=== PATIENT | male | born 1945 | race Caucasian/White ===

== ENCOUNTER → 2023-04-10 09:01 | Outpatient (REF) | payer OTHER, SELFPAY ==
[2023-04-10 09:38] LABS: % Basophils 0.6 % (0-2); % Eosinophils 1.8 % (0-6); % Immature Granulocytes 0.5 % (0-0.5); % Lymphocytes 17.6 % (20.5-51.1); % Monocytes 8.6 % (1.7-9.3); % Neutrophils 70.9 % (42.2-75.2); Absolute Eosinophils 0.1 10^3/uL (0-0.7); Absolute Lymphocytes 1.2 10^3/uL (1.2-3.4); Absolute Monocytes 0.6 10^3/uL (0.1-0.6); Absolute Neutrophils 4.7 10^3/uL (1.4-6.5); Hematocrit 42.2 % (39.0-52.0); Hemoglobin 14.5 g/dL (13.0-18.0); Mean Corp Hgb Conc. 34.4 g/dL (33.0-37.0); Mean Corpuscular Volume 93.2 fL (80.0-94.0); Mean Platelet Volume 9.3 fL (7.4-10.4); Nucleated Red Blood Cells % 0 % (-); Platelet Count 238 10^3/uL (130-400); Red Blood Cell Count 4.53 10^6/uL (4.70-6.10); White Blood Cell Count 6.6 10^3/uL (4.8-10.8)
[2023-04-10 10:55] LABS: ALT (SGPT) 23 U/L (0-50); AST (SGOT) 36 U/L (17-59); Albumin 3.9 g/dl (3.5-5.0); Alkaline Phosphatase 74 U/L (38-126); Blood Urea Nitrogen 17 mg/dl (9-20); Calcium 8.9 mg/dl (8.4-10.2); Carbon Dioxide 29 mmol/L (22-30); Chloride 105 mmol/L (98-107); Glucose 108 mg/dl (70-99); HDL Cholesterol 72 mg/dl; LDL Cholesterol, Calculated 70 mg/dl; PSA, Total - Screen 6.84 ng/ml (0.0-4.0); Potassium 4.3 mmol/L (3.5-5.1); Sodium 138 mmol/L (135-145); Total Bilirubin 0.9 mg/dl (0.2-1.3); Total Cholesterol 153 mg/dl (50-199); Total Protein 6.6 g/dl (6.3-8.2); Triglyceride 55 mg/dl (10-149); Very Low Density Lipoprotein 11 mg/dl (0-30); eGFR > 60.00
[2023-04-10 11:36] LABS: Glycohemoglobin (HgbA1c) 5.7 % (4.0-5.6)
== END ==
LOC: REG 09:01
PROVIDERS: ATTENDING PHYSICIAN Student in an Organized Health Care Education/Training Program
DX: Z00.00 Encounter for general adult medical examination without abnormal findings (principal); R73.01 Impaired fasting glucose; E78.00 Pure hypercholesterolemia, unspecified; M04.1 Periodic fever syndromes; Z12.5 Encounter for screening for malignant neoplasm of prostate
CPT/HCPCS: 36415; 80053; 80061; 83036; 85025; G0103

== ENCOUNTER → 2023-04-26 10:24 | Outpatient (REF) | payer OTHER, SELFPAY | LOC: RCS 10:24 | PROVIDERS: ATTENDING PHYSICIAN Student in an Organized Health Care Education/Training Program | DX: R93.1 Abnormal findings on diagnostic imaging of heart and coronary circulation (principal) | CPT/HCPCS: 93017 ==

== ENCOUNTER → 2023-05-06 08:49 | Outpatient (REF) | payer OTHER, SELFPAY | LOC: HWRCS 08:49 | PROVIDERS: ATTENDING PHYSICIAN Student in an Organized Health Care Education/Training Program | DX: R93.1 Abnormal findings on diagnostic imaging of heart and coronary circulation (principal) | CPT/HCPCS: 93306 ==

== ENCOUNTER → 2023-05-10 08:22 | Outpatient (REF) | payer OTHER, SELFPAY | LOC: RAD 08:22 | PROVIDERS: ATTENDING PHYSICIAN Student in an Organized Health Care Education/Training Program | DX: R97.20 Elevated prostate specific antigen [PSA] (principal) | CPT/HCPCS: 76872 ==

== ENCOUNTER → 2023-07-31 11:37 | Outpatient (REF) | payer OTHER, SELFPAY | LOC: PET 11:37 | PROVIDERS: ATTENDING PHYSICIAN Specialist | DX: C61 Malignant neoplasm of prostate (principal) | CPT/HCPCS: 78815 ==

== ENCOUNTER → 2023-08-09 07:09 | Outpatient (REF) | payer OTHER, SELFPAY ==
[2023-08-09 08:38] LABS: Blood Urea Nitrogen 26 mg/dl (9-20); Carbon Dioxide 30 mmol/L (22-30); Chloride 103 mmol/L (98-107); Glucose 104 mg/dl (70-99); Potassium 4.2 mmol/L (3.5-5.1); Sodium 141 mmol/L (135-145); eGFR > 60.00
== END ==
LOC: REG 07:09
PROVIDERS: ATTENDING PHYSICIAN Surgery Vascular Surgery; FAMILY PHYSICIAN Student in an Organized Health Care Education/Training Program
DX: I71.40 Abdominal aortic aneurysm, without rupture, unspecified (principal); R97.20 Elevated prostate specific antigen [PSA]
CPT/HCPCS: 36415; 80048; G0103

== ENCOUNTER → 2023-08-14 08:43 | Outpatient (REF) | payer OTHER, SELFPAY | LOC: HWRAD 08:43 | PROVIDERS: ATTENDING PHYSICIAN Surgery Vascular Surgery; FAMILY PHYSICIAN Student in an Organized Health Care Education/Training Program | DX: I71.40 Abdominal aortic aneurysm, without rupture, unspecified (principal) | CPT/HCPCS: 74174; Q9967 ==

== ENCOUNTER 2023-09-02 06:12 | Inpatient (IN) | payer OTHER, SELFPAY ==
[2023-08-28 10:48] LABS: % Basophils 0.4 % (0-2); % Eosinophils 1.2 % (0-6); % Immature Granulocytes 0.4 % (0-0.5); % Lymphocytes 14.2 % (20.5-51.1); % Monocytes 6.7 % (1.7-9.3); % Neutrophils 77.1 % (42.2-75.2); Absolute Eosinophils 0.1 10^3/uL (0-0.7); Absolute Monocytes 0.5 10^3/uL (0.1-0.6); Absolute Neutrophils 5.3 10^3/uL (1.4-6.5); Hematocrit 42.5 % (39.0-52.0); Hemoglobin 14.5 g/dL (13.0-18.0); Mean Corp Hgb Conc. 34.1 g/dL (33.0-37.0); Mean Corpuscular Hgb 31.2 pg (27.0-31.0); Mean Corpuscular Volume 91.4 fL (80.0-94.0); Mean Platelet Volume 10.4 fL (7.4-10.4); Nucleated Red Blood Cells % 0 % (-); Platelet Count 184 10^3/uL (130-400); Red Blood Cell Count 4.65 10^6/uL (4.70-6.10); Red Cell Dist. Width 13.4 % (11.5-14.5); White Blood Cell Count 6.9 10^3/uL (4.8-10.8)
[2023-08-28 10:57] LABS: INR 1.07; PT 13.9 Sec (11.4-14.6)
[2023-08-28 10:58] LABS: APTT 25.5 Sec (23.4-35.0)
[2023-08-28 12:02] LABS: Blood Urea Nitrogen 16 mg/dl (9-20); Calcium 9.3 mg/dl (8.4-10.2); Carbon Dioxide 30 mmol/L (22-30); Chloride 103 mmol/L (98-107); Glucose 104 mg/dl (70-99); Potassium 4.2 mmol/L (3.5-5.1); Sodium 139 mmol/L (135-145); eGFR > 60.00
[2023-08-28 12:30] VITALS: BMI 21.7
[2023-09-02] VITALS (12 sets, daily range): BP systolic 116–141; BP diastolic 71–96; BMI 20.9
[2023-09-02] MEDS: PERIDEX 0.12% ORAL RINSE 15 ML PO (06:45)
[2023-09-02] MEDS: BACTROBAN NASAL 1 GRAM NASAL (06:47)
[2023-09-02] MEDS: NSS 181 ML IV (06:59)
[2023-09-02 07:08] LABS: Glucose - Point of Care 95 mg/dl (70-99)
--- NOTE | 2023-09-02 07:19 | W.SUR.PREOP ---
Pre-Operative Surgical Note
-
I have examined this patient prior to the performance of the scheduled procedure.
The patient's condition is unchanged from the time of the current History and
Physical and the patient is able to undergo the scheduled procedure.
[2023-09-02 08:53] LABS: ACT-LR - POC 221 Seconds (116-155)
[2023-09-02 09:31] LABS: ACT-LR - POC 237 Seconds (116-155)
--- NOTE | 2023-09-02 10:24 | OR.RPT ---
Operative Report
Operative Report
Date of Operation: 09/02/2023
Pre Op Diagnosis: Abdominal aortic aneurysm
Post Op Diagnosis: Abdominal aortic aneurysm
Procedure:
1.) Percutaneous endovascular repair of infrarenal abdominal aortic aneurysm:
����������� Terumo Treo 28 mm x 100 mm
����������� Terumo Treo 17 mm x 120 mm �(LEFT iliac limb)
����������� Terumo Treo 17 mm x 120 mm (RIGHT iliac limb)
2.) Introduce wire/catheter abdominal aorta from femoral arterial access (bilateral)
3.) Ultrasound-guided percutaneous femoral access (bilateral)
4.) LEFT femoral artery cutdown for primary repair of common femoral artery access site at the conclusion of the case
5.) Pro-glide closure to the right common femoral artery access
Surgeon: Blake Horner III, MD
Document Management Technician: Camilo Nettles MD PGY-1
Anesthesia: General
Complications: None
Estimated blood loss: 100 cc
Fluoroscopy:
25.9 minutes
311 mGy
DAP 108.27
History and Indications for Procedure: 78-year-old male with large abdominal aortic aneurysm.
Procedure in Detail: Juan Carlos Mcduffie was correctly identified and placed supine on the operating table. After adequate induction of anesthesia the abdomen, pelvis and bilateral groins were positioned, prepped and draped in the usual sterile
fashion. Preoperative antibiotics were administered. A timeout procedure was performed with the nursing and anesthesia staff confirming the patient�s identity as well as the nature and laterality of the procedure.
Under ultrasound guidance, bilateral femoral artery sheath access was obtained. The arteries were patent. Ultrasound images of the femoral arteries were saved to the medical record. A pre-close technique was performed bilaterally with 2 offset
Proglide closure devices. The sutures were secured and tucked under surgical towels for use at the end of the case. The patient was systemically heparinized.
From the right femoral access a KMP catheter and Bentson wire were advanced to the proximal descending thoracic aorta. The wire was exchanged out through the KMP catheter for a Lunderquist wire.� There was some persistent bleeding from around the
percutaneous sheath access in the left femoral artery therefore I upsized to a 16 [place] dry seal sheath on the left over a Lunderquist wire. �Hemostasis was then achieved at the access site. �A marker pigtail catheter was then placed for
angiographic purposes through the left femoral sheath.
The aortic main body device was then properly oriented outside the body under fluoro. The Terumo Treo 28 mm x 100 mm aortic main body device was then loaded onto the right Lunderquist wire and advanced into the abdominal aorta. With the device in
the approximate position an aortogram was performed and identified the origins of the renal arteries bilaterally.� Under roadmap guidance the main body was partially unsheathed. Another aortogram was then performed under magnified view and in the
appropriate cranio-caudal C-arm orientation to account for parallax. The main body was positioned appropriately below the renal arteries and the remaining main body deployment to the contralateral gate was performed. Satisfied with the proximal main
body positioning the suprarenal stent was then deployed.
The C-arm was re-oriented to view the contralateral gate. Using a KMP catheter and a Glidewire, the contralateral gate was cannulated. The wire and catheter were advanced into the main body and then exchanged out for a pigtail catheter. The pigtail
was spun easily and confirmed proper positioning in the main body lumen. The pigtail catheter was then advanced into the proximal descending thoracic aorta and then the wire exchanged out for a Lunderquist. A retrograde arteriogram was then
performed with the marker pigtail catheter on the stiff wire. The iliac bifurcation was visualized and lengths were measured for the contralateral iliac limb. A 17 mm x 120 mm Terumo iliac limb was inserted through the 16 [place] dry seal sheath on
the left under fluoro. Proper overlap was obtained. The limb was deployed under roadmap guidance without difficulty.
The remainder of the main body/ipsilateral limb deployment was performed. The delivery system was carefully removed over the wire under fluoro, leaving the sheath in place.
A marker pigtail catheter was placed on the right Lunderquist wire. The right femoral sheath was pulled back and a retrograde arteriogram was then performed with the marker pigtail catheter on the stiff wire. The right iliac bifurcation was
visualized and lengths were measured for the ipsilateral iliac limb extension. A 17 mm x 120 mm Terumo iliac limb was inserted on the right under fluoro. Proper overlap was obtained. The limb was deployed under roadmap guidance without difficulty.
A Coda balloon was then inserted from each femoral access, one side at a time. The proximal main body seal zone, all areas of overlap, both iliac limbs and both distal iliac seal zones were profiled with the balloon. The balloon was readvanced into
the main body and the Lunderquist wire removed. A pigtail catheter was inserted and advanced to the proximal main body.
A completion aortogram demonstrated an excellent technical result. The aneurysm was excluded. No endoleaks were seen. There was brisk flow through the stent and iliac limbs. The renal arteries were widely patent bilaterally. The iliac bifurcations
were preserved bilaterally.
Satisfied with this result we then proceeded with closure.� We attempted to secure the Pro-glide knots in the left femoral access however there was persistent bleeding from the access site.� I positioned and deployed a third Pro-glide at 12 o'clock
but this did not result in meaningful improvement in hemostasis and I did not think this could be controlled adequately with manual pressure..� Therefore while applying manual pressure proximally and distally I quickly cut down on the left common
femoral artery.� I followed the Pro-glide sutures down to the arterial access using sharp dissection and electrocautery along with self-retaining retractors.� The left common femoral artery was identified and exposed.� There was an area of pulsatile
bleeding from the common femoral artery lateral to the Pro-glide suture knots.� This was controlled with interrupted 5-0 Prolene sutures.� Hemostasis was achieved.� The wound was then packed with dry gauze while we focused on the right femoral
artery access.
The Proglide sutures on the right were secured after removing the sheath and wire. Protamine was administered at this point. Additional pressure was applied to the right femoral artery access site for 10 minutes. Hemostasis was achieved. �Skin glue
was applied.
I then re-examined the left femoral artery.� The arterial suture line was intact and there was complete hemostasis.� The wound was irrigated with saline solution.� Thrombin soaked Gelfoam was applied to the artery. Hemostasis was achieved in the
wound bed.� The wound was closed in layers. Sterile dressings were applied.
The patient tolerated the procedure well and was taken to the PACU in stable condition. He had palpable pedal pulses bilaterally at the conclusion of the case.
Attestation: I was present and responsible for the entire procedure
SIGNED:
Blake Horner III, MD
[facility] Surgery
[phone] (cell)
--- NOTE | 2023-09-02 10:33 | W.IMMPOSTOP ---
Surgical Immed Post Op Note
-
Primary Surgeon: Blake Horner III, MD
Assisting Surgeon: Caimlo Nettles MD
Pre-op Diagnosis: Infra-renal AAA
Post-op Diagnosis: Infra-renal AAA
Procedure Performed: Endovascular Aneurysm Repair
Anesthesia Type: General
Specimen / Cultures: NA
Estimated Blood Loss: 100cc
Complications: NA
Operative Findings:
Bilateral groin access established and serial dilation to 5Fr sheaths. 2 perc close devices placed in each access site. [id number] main body device advanced up right groin. Overlapping 10s551 limb devices advanced and deployed without issues. All
devices were balloon-expanded. Deployment devices removed while deploying perc close devices. After deployment of perc-close devices, left groin required small cut-down to control additional bleeding. Two 5-0 prolenes were placed and tied, with
hemostasis confirmed. Gel-foam and thrombin placed for additional hemostatic control. Left groin closed with running 3-0 vicryls, overlying 4-0 monocryl, and skin glue. Pulses palpable bilaterally after closure.
[2023-09-02 10:57] LABS: Hematocrit 36.9 % (39.0-52.0); Hemoglobin 12.5 g/dL (13.0-18.0); Mean Corp Hgb Conc. 33.9 g/dL (33.0-37.0); Mean Corpuscular Hgb 30.9 pg (27.0-31.0); Mean Corpuscular Volume 91.3 fL (80.0-94.0); Platelet Count 120 10^3/uL (130-400); Red Blood Cell Count 4.04 10^6/uL (4.70-6.10); Red Cell Dist. Width 13.1 % (11.5-14.5); White Blood Cell Count 12.1 10^3/uL (4.8-10.8)
[2023-09-02 11:05] LABS: APTT 28.1 Sec (23.4-35.0); INR 1.24; PT 15.4 Sec (11.4-14.6)
[2023-09-02 11:15] LABS: Blood Urea Nitrogen 13 mg/dl (9-20); Calcium 6.8 mg/dl (8.4-10.2); Carbon Dioxide 20 mmol/L (22-30); Chloride 114 mmol/L (98-107); Estimated Creatinine Clearance 89 ml/min; Glucose 130 mg/dl (70-99); Potassium 3.4 mmol/L (3.5-5.1); Sodium 139 mmol/L (135-145); eGFR > 60.00
[2023-09-02] MEDS: NSS 1000 IV (11:23)
[2023-09-02] MEDS: KCL 270 MEQ IV (12:10)
--- NOTE | 2023-09-02 12:39 | CON.INTV ---
Consultation
Consultation Request
Date/Time Consultation Requested: 09/01
Date/Time Consultation Performed: 09/01
Reason for Consultation: Critical care
Medical History
-
History of Present Illness:
78-year-old male with history of prostate cancer diagnosed 1 month prior to admission, with known abdominal aortic aneurysm infrarenal 7.0 cm who is status post, otherwise healthy. Patient underwent repair of his abdominal aortic aneurysm, EVAR.
Admitted to ICU for further management postoperatively. Presently he is without complaints. He has some mild left groin discomfort during exam but otherwise no shortness of breath, nausea, abdominal pain, leg pain. and friend at bedside to
corroborate history.
Of note, preadmission, patient was running regularly, 16 miles without any difficulty. Has plans to run the [employer].
.
PMH: Hypertension, hyperlipidemia history of metastatic prostate cancer, tubular colon polyp, familial Mediterranean fever. History of appendectomy 1954, cholecystectomy 1992, right inguinal hernia repair 2013
Past Medical History
Past Medical History: None (See above)
Past Surgical History: None (See above)
Social History
Tobacco: Former Smoker ([id number], quit 1983)
Alcohol: Occasional
Drug: None
Personal:
Living: With Family
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
Family History
Family History: Reviewed & Not Pertinent (Parents , 2 sisters healthy. No children. Both parents in the ninth decade)
Allergies / Home Medications
Allergies
Allergy/AdvReac Type Severity Reaction Status Date / Time
No Known Allergies Allergy Verified 08/22/23 12:17
Home Medications
�Medication �Instructions �Recorded �Confirmed �Last Taken �Type
aspirin 81 mg tablet,delayed 81 mg PO HS 08/22/23 09/02/23 08/31/23 23:00 History
release
atorvastatin 20 mg tablet (Lipitor) 20 mg PO HS 08/22/23 09/02/23 08/31/23 23:00 History
relugolix 120 mg tablet (Orgovyx) 120 mg PO DAILY 08/22/23 09/02/23 09/01/23 10:00 History
tamsulosin 0.4 mg capsule (Flomax) 0.4 mg PO DAILY 08/22/23 09/02/23 09/01/23 08:00 History
Review of Systems
-
All other systems: Negative unless noted
Vitals / Labs / Diagnostic Testing
Vital Signs
Temp Pulse Resp BP Pulse Ox
97.6 F 69 13 123/72 99
09/02/23 12:32 09/02/23 12:30 09/02/23 12:30 09/02/23 12:03 09/02/23 12:35
Lab Data
09/02/23 10:44
09/02/23 10:44
Laboratory Results
09/02/23
10:44
PT 15.4 H
INR 1.24
APTT 28.1
Diagnostic Testing:
Physical Exam
-
HEENT: Normocephalic, Anicteric and Other (Right upper extremity A-line. Left and right groin intact, pulse intact, no hematoma)
Cardiovascular: S1/S2, Regular Rhythm, Murmur (n), Rub (n), Peripheral Edema (n) and Other (Extremities warm, pulses intact)
Respiratory: Wheeze (n), Rales (n), Rhonchi (n) and Non-Labored Respirations
GI: Soft, Non Distended and Non Tender
Neurology: Awake, Alert and No Motor Deficits (Moving all extremities)
Skin: Good Color
General: Comfortable (Conversant, lying flat in good spirits)
Assessment
-
78-year-old male with history of presumed coronary disease based on abnormal coronary calcium score, prostate cancer, now status post endovascular aneurysm repair of infrarenal AAA 7 cm. Estimated blood loss 100 cc. We are asked to help from
critical care standpoint 09/02/2023
s/p endovascular aneurysm repair, infrarenal AAA 7.2 cm
09/02/2023
Left femoral artery cutdown for primary repair of common femoral artery access site hypokalemia,
Hypocalcemia mild to moderate left hydronephrosis, Per imaging
Conditions present prior to admission
Presumed coronary disease, abnormal calcium score
Treated with high-dose statin, aspirin
Recently diagnosed prostate cancer
Osseous metastases per PET scan
Suspected epidural metastases mid thoracic spine
Distant tobacco history, quit 1983
[id number]
Plan/recommendations
At this time, patient remains critically ill but stable. He is without complaints
Complaining of mild left groin pain during exam
Pulses intact, neurological exam nonfocal preoperative cardiology correspondence reviewed, cleared
Echocardiogram May 2023 normal
Stress test April 2023 normal
Moving forward
Continue with management per vascular surgery
Pain is controlled, groin intact, pulse intact
Check postoperative EKG check chest x-ray
Follow electrolytes, replete as indicated
Patient require left femoral artery cutdown for primary repair of access site
Follow groin exam, neurological exam
Patient with recently diagnosed metastatic prostate cancer. He runs 68 miles without any limitations. Denies any back pain
Denies any urinary symptoms preprocedure
Reviewed with critical care nursing, family at bedside
Will follow
TCCT 31 min
[2023-09-02] MEDS: FLOMAX 0.400000000000000022 MG PO (13:20)
[2023-09-02] MEDS: TYLENOL 650 MG PO (13:20)
[2023-09-02] MEDS: TUMS 2 TABLET PO ×2 (13:20→19:59)
--- NOTE | 2023-09-02 13:52 | PTCARENOTE ---
Updated assessment, vital signs ongoing and ass documented. Continue ongoing neurovascular checks. Patient family at bedside updated plan of cares. Follow up [facility] teaching. Patient now cleared to sit up having lunch, talking with family. Bedside
update with Pc Installation Engineer. Ecg completed. lyte replacement as ordered. IVF continues, continue critical input output trends, presently greater than 100ml/hrly. Continue hourly rounds and follow up assessments.
[2023-09-02] MEDS: HEPARIN 5000 UNITS SC (16:11)
--- NOTE | 2023-09-02 17:23 | PTCARENOTE ---
Dr Horner by to see patient in ICU. VSS weaning off O2 to room air vss saturation stable. IVF capped with dinner. 100% of meal taken and tolerating po intake. Lytes as ordered. Follow up lab trends for am. Continue ongoing Neuro/Vascular checks as
per protocol. Family updated and going home at this time. Continue with teaching and supportive cares. Complete bed bath at this time.
[2023-09-02] MEDS: LIPITOR 20 MG PO (21:04)
[2023-09-02] MEDS: ASPIR LOW (ENTERIC COATED) 81 MG PO (21:04)
--- NOTE | 2023-09-02 21:25 | PTCARENOTE ---
received patient from previous shift. alert and orientated x3. very pleasant and talkative. no c/o pain. neurovascular checks done hourly. on room air, lungs clear. NS on the monitor. a-line zeroed and transduced. cuevas in place.
[2023-09-03] VITALS (7 sets, daily range): BP systolic 119–152; BP diastolic 60–86; BMI 21.0
[2023-09-03] MEDS: HEPARIN 5000 UNITS SC ×2 (00:20→08:23)
--- NOTE | 2023-09-03 01:13 | PTCARENOTE ---
hourly neurovascular checks remain unchanged. pt attempting to get some sleep.
[2023-09-03 04:47] LABS: Ionized Calcium 1.16 mMOL/L (1.15-1.33)
[2023-09-03 04:53] LABS: INR 1.18; PT 14.8 Sec (11.4-14.6)
[2023-09-03 04:54] LABS: APTT 28.5 Sec (23.4-35.0)
[2023-09-03 05:06] LABS: Hemoglobin 11.8 g/dL (13.0-18.0); Mean Corp Hgb Conc. 35.8 g/dL (33.0-37.0); Mean Corpuscular Hgb 31.1 pg (27.0-31.0); Mean Corpuscular Volume 87.1 fL (80.0-94.0); Mean Platelet Volume 10.1 fL (7.4-10.4); Platelet Count 141 10^3/uL (130-400); Red Blood Cell Count 3.79 10^6/uL (4.70-6.10); Red Cell Dist. Width 13.3 % (11.5-14.5); White Blood Cell Count 13.5 10^3/uL (4.8-10.8)
[2023-09-03 05:36] LABS: Blood Urea Nitrogen 14 mg/dl (9-20); Carbon Dioxide 22 mmol/L (22-30); Chloride 107 mmol/L (98-107); Estimated Creatinine Clearance 77 ml/min; Glucose 127 mg/dl (70-99); Potassium 3.9 mmol/L (3.5-5.1); Sodium 137 mmol/L (135-145); eGFR > 60.00
--- NOTE | 2023-09-03 07:18 | W.PN.INTV ---
Today's Communication / Plan
Recommendations
Continue with management per vascular surgery
Discontinue Horner, discontinue A-line
Pain control, minimal requirements at this time
Ambulate
Disposition efforts
Assessment
-
78-year-old male with history of presumed coronary disease based on abnormal coronary calcium score, prostate cancer, now status post endovascular aneurysm repair of infrarenal AAA 7 cm. Estimated blood loss 100 cc. We are asked to help from
critical care standpoint 09/02/2023
s/p endovascular aneurysm repair, infrarenal AAA 7.2 cm
09/02/2023
Left femoral artery cutdown for primary repair of common femoral artery access site hypokalemia,
Hypocalcemia mild to moderate left hydronephrosis, Per imaging
Conditions present prior to admission
Presumed coronary disease, abnormal calcium score
Treated with high-dose statin, aspirin
Recently diagnosed prostate cancer
Osseous metastases per PET scan
Suspected epidural metastases mid thoracic spine
Distant tobacco history, quit 1983
[id number]
Plan/recommendations
At this time, patient appears comfortable
Complaining of mild left groin pain during exam
No obvious pulsatile mass, pulses intact
Neurological exam nonfocal preoperative cardiology correspondence reviewed, cleared
Echocardiogram May 2023 normal
Stress test April 2023 normal
Chest x-ray, EKG unremarkable
Moving forward
Continue with management per vascular surgery
Pain is controlled, groin intact, pulse intact
Patient require left femoral artery cutdown for primary repair of access site
Follow groin exam, neurological exam
Pain control, minimal requirements at this time
Patient with recently diagnosed metastatic prostate cancer. He runs 68 miles without any limitations. Denies any back pain
Denies any urinary symptoms preprocedure
Ambulated per vascular surgery
Reviewed with critical care nursing, family at bedside
Possible discharge later today
Subjective Dataa
Subjective Data
Date of Service:
Date of Service: September 03, 2023
Subjective:
Patient is without complaints. Has a mild left groin pain otherwise denies any shortness of breath, chest pain, nausea, abdominal pain. Appears to be in good spirits.
Objective Data
Data Reviewed
Vital Signs / I&O / Oxygen:
Vital Signs
Temp Pulse Resp BP Pulse Ox
98.0 F 59 16 152/72 99
09/03/23 07:07 09/03/23 05:30 09/03/23 05:30 09/03/23 02:59 09/03/23 05:30
Intake and Output
09/02/23 09/03/23 09/04/23
06:59 06:59 06:59
Intake Total 1950 / 1950
Output Total 3350 / 3350
Balance -1400 / -1400
SaO2 99
Nasal Cannula flow liters per 2
minute
Physical Exam
General: Comfortable
HEENT: Normocephalic and Anicteric
Cardiovascular: S1-S2, Regular Rhythm, Murmur (n) and Rub (n)
Respiratory: Wheeze (n), Crackles (n), Rhonchi (n) and Non-Labored Respirations
GI: Soft, Non Distended and Non Tender
Neurology: Awake, Alert and No Motor Deficits
Skin: Cyanosis (n), Jaundice (n), Other (Left groin mildly tender, right groin mildly tender, no pulsatile mass. Pulses intact) and Other (Distal pulses DP intact, feet warm)
Labs/Micro/Reports
Lab Data
09/03/23 04:33
09/03/23 04:33
Laboratory Results
09/02/23 09/03/23
10:44 04:33
PT 15.4 H 14.8 H
INR 1.24 1.18
APTT 28.1 28.5
[2023-09-03] MEDS: FLOMAX 0.400000000000000022 MG PO (08:23)
--- NOTE | 2023-09-03 08:37 | PTCARENOTE ---
Update with vascular team this am at bedside. Follow up POD#1 plan of cares. Breakfast at this time. Update with via phone. Follow up deline and mobility plan of cares. Update and address questions, reinforce plan of cares. Will follow up
assessment and vital signs as per vascular.
--- NOTE | 2023-09-03 08:38 | W.PN.VS ---
Addendum entered and electronically signed by Blake Horner III, MD 09/03/23 10:41:
This patient was seen and examined with SHANNA Snow. I agree with the history and physical exam as well as the assessment and plan.
Looks great
Agree with plan
Signed:
Blake Horner III, MD
[facility] V[facility] Surgery
[phone] (cell)
Original Note:
Today's Communication / Plan
-
Patient seen and examined at bedside with attending Dr. Blake Horner III, below plan reviewed with attending.
Assessment/Plan
-
Assessment: 78 year old male POD#1 EVAR
Plan:
Discontinue arterial line
Discontinue IV fluids
Discontinue Horner catheter
OOB to chair with progression to ambulation
Possible discharge later today
Subjective Data
-
Date of Service: September 03, 2023
Patient seen and examined today, offers no complaints. Reports adequate post operative pain management. Denies nausea, vomiting, fever, and chills.
Objective Data
-
Vital Signs
Temp Pulse Resp BP Pulse Ox
98.0 F 64 20 144/61 97
09/03/23 07:29 09/03/23 08:15 09/03/23 08:15 09/03/23 07:29 09/03/23 08:15
Intake and Output
09/02/23 09/03/23 09/04/23
06:59 06:59 06:59
Intake Total 1950 / 2190 560 / 560
Output Total 3350 / 3475 250 / 250
Balance -1400 / -1285 310 / 310
Intake:
Oral fluids 920 / 1160 560 / 560
IV fluids (Total) 780 / 780
Normosol 300 / 300
Nss 1,000 ml @ 80 mls/hr IV . 480 / 480
[id number] [facility] Rx#:[id number]
IV piggybacks 250 / 250
Output:
Urine, Horner 3350 / 3475 250 / 250
Lab Results
09/03/23 04:33
09/03/23 04:33
Calcium 9.0 mg/dl (8.4-10.2) D 09/03/23 04:33
Magnesium 2.0 mg/dl (1.6-2.3) 09/03/23 04:33
Physical Exam
-
AAOx3, NAD
No tachycardia
No dyspnea
ABD flat, non-tender, non-distended
BL groin sites flat, no evidence of hematoma, all surrounding compartments soft
BL DP +1 palpable, BL feet warm
Horner draining clear yellow urine
[2023-09-03] MEDS: NON-FORMULARY ITEM 120 MG PO (10:19)
--- NOTE | 2023-09-03 10:24 | PTCARENOTE ---
Update with patient and at bedside. Follow up plan of cares. Update medications with pharmacy and given as ordered. Await patient void post cath dc. Timed out till 1500hrs will follow along with bladder scan as needed. Call palafox instruct and in
use. Continue hourly rounds and cares as needed.
--- NOTE | 2023-09-03 10:58 | PTCARENOTE ---
Patient voided 250ml clear yellow urine without difficulty. Ambulate room with staff. Still denies pain discomfort with incisions unless touching. Ambulate room with supervision. Patient asking appropriate questions related to post activities. VS as
trended.
--- NOTE | 2023-09-03 11:26 | CM ---
CM following re: discharge planning.
Reviewed pt's chart, met with pt.
Pt is a 78 year old male, admitted with primary dx of POD#1 EVAR. Per Vascular Surgery, pt is doing well and pt probably will be discharged home today. Pt is aware, expressed his agreement and he stated his spouse is coming to transport him home.
IMM reviewed, placed on chart, pt has a copy.
Pt reports he lives with spouse in a 2[address], has no children, has a dog. Pt described himself as independent in all areas [employer]NA[employer], drives.
PCP: Lou Hernandez
Pharmacy: [facility]
D/C plan: home no needs. Spouse to transport.
--- NOTE | 2023-09-03 12:04 | W.DS.TRANS ---
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
-
Discharge Instructions:
Sleep Apnea Risk Low
Discharge Diagnosis/Procedures EVAR
Diet As tolerated
Activity No strenuous activity
Driving Restrictions No driving for 1 week
Bathing Restrictions OK to Shower
Instructions:
Stand-Alone Forms: DC Instr - Vascular OR
Changes to Home Medications: No
Discharge Medications:
DC Medications w/original date entered in [employer]
aspirin 81 mg tablet,delayed release 81 mg PO HS Blood Clot Prevention/Tx 08/22/23
atorvastatin 20 mg tablet (Lipitor) 20 mg PO HS High Cholesterol 08/22/23
relugolix 120 mg tablet (Orgovyx) 120 mg PO DAILY prostate cancer 08/22/23
tamsulosin 0.4 mg capsule (Flomax) 0.4 mg PO DAILY Urinary Issue 08/22/23
Home Medication Changes
Pending Results: No
--- NOTE | 2023-09-03 12:11 | W.DCSUMMARY ---
Discharge Summary
Discharge Data
Date of Admission: 09/02/23
Date of Discharge: 09/03/23
-
Pending Results: No
Hospital Course
Attending: Siri
Consultants: Pulmonary medicine
Allergies: NKDA
Procedure with date: 09/02/23: Percutaneous endovascular repair of infrarenal abdominal aortic aneurysm, left femoral artery cutdown for primary repair of common femoral artery access
History of present illness: The patient is an 78-year-old male with multiple medical conditions including: abdominal aortic aneurysm, prostate cancer, appendectomy, cholecystectomy, right hernia repair. Patient presented on 09/02/2023 for scheduled
procedure with Dr. Horner. Patient presented at baseline health with no reports of recent illness or trauma.
Hospital Course: Briefly, the patient underwent scheduled EVAR without complications, and recovered in PACU. Following recovery phase one and two patient was transferred to intensive care unit per protocol for continued hemodynamic monitoring.
Tank Systems Maintainer consulted to aid in medical management from a critical care perspective. POD #1 (09/03/2023) Patient neurologically intact, overall doing well, and tolerating PO diet. Surgical groin sites clean, dry, and intact with suture line well
approximated and soft. No evidence of hematoma. Arterial line and IV fluids discontinued. Patient able to ambulate without difficulty or incident. Patient stable for discharge to home.
Prescriptions and follow up appointment are included in the DC summary yard jacker note. All instructions were given to the patient in both written and verbal form and the patient expressed understanding.
Discharge Plan
-
Patient Disposition: Home (Routine Discharge)
Discharge Diagnosis/Procedures: EVAR
Condition: Good
Diet: As tolerated
Activity: No strenuous activity
Driving Restrictions: No driving for 1 week
Bathing Restrictions: OK to Shower
Stand Alone Forms: DC Instr - Vascular OR
Referrals:
Maru Abbott PA-C [Specified Professional Personl] - 09/16/23 9:30 am (Vascular follow up)
Lou Hernandez MD [Family Provider] -
Prescriptions:
Continued
atorvastatin [Lipitor] 20 mg Tablet
20 mg PO HS
aspirin 81 mg Tablet,Delayed Release (Dr/Ec)
81 mg PO HS
tamsulosin [Flomax] 0.4 mg Capsule
0.4 mg PO DAILY
Orgovyx 120 mg Tablet
120 mg PO DAILY
Rx Instructions:
at 1000
Discharge Orders:
Discharge Patient (As Directed); Ordered 09/03/23
Ordered By: Trisha Fuchs
Discharge Date and Time
Discharge Date/Time: 09/03/23 13:20
Print Language: UKRAINIAN
--- NOTE | 2023-09-03 13:44 | PTCARENOTE ---
Updated plan of cares, discharge instructions and follow up plan of cares with patient and family. No further questions vss, voided again before leaving shift total 650ml. Sites intact. Ambulate off ICU with assist to transport.
== END 2023-09-03 13:20 | disposition home or self-care (01) | DRG 269 ==
LOC: ICU 06:12
PROVIDERS: Nurse Practitioner Acute Care; ADMITTING PHYSICIAN Surgery Vascular Surgery; CONSULT PHYSICIAN Internal Medicine Critical Care Medicine; FAMILY PHYSICIAN Student in an Organized Health Care Education/Training Program
PROC: 04V03DZ Restriction of Abdominal Aorta with Intraluminal Device, Percutaneous Approach (ICD-10-PCS; 2023-09-02)
DX: I71.43 Infrarenal abdominal aortic aneurysm, without rupture (principal); C79.51 Secondary malignant neoplasm of bone; N13.30 Unspecified hydronephrosis; Z87.891 Personal history of nicotine dependence; C61 Malignant neoplasm of prostate; E87.6 Hypokalemia; E83.51 Hypocalcemia
CPT/HCPCS: 34705; 36415; 71045; 71046; 76937; 80048; 82330; 82962; 83735; 85025; 85027; 85610; 85730; 86850; 86900; 86901; 86920; 87070; 93005; C1760; C1769; C1874; C1892; C1894; C2628

== ENCOUNTER → 2023-09-13 08:26 | Outpatient (REF) | payer OTHER, SELFPAY ==
[2023-09-13 10:45] VITALS: BP 129/79; BP_SYST 66
[2023-09-13] MEDS: ANCEF 10 IV (11:15)
[2023-09-13 12:47] VITALS: BP 120/76
== END ==
LOC: RADI 08:26
PROVIDERS: ATTENDING PHYSICIAN Internal Medicine Hematology & Oncology; FAMILY PHYSICIAN Student in an Organized Health Care Education/Training Program
DX: C61 Malignant neoplasm of prostate (principal)
CPT/HCPCS: 36561; 76937; 77001; 99152; 99153; C1788

== ENCOUNTER → 2023-09-16 10:15 | Outpatient (REF) | payer OTHER, SELFPAY ==
[2023-09-16 11:41] LABS: ALT (SGPT) 39 U/L (0-50); AST (SGOT) 37 U/L (17-59); Albumin 3.7 g/dl (3.5-5.0); Alkaline Phosphatase 130 U/L (38-126); Blood Urea Nitrogen 20 mg/dl (9-20); Calcium 8.9 mg/dl (8.4-10.2); Carbon Dioxide 31 mmol/L (22-30); Chloride 103 mmol/L (98-107); Glucose 111 mg/dl (70-99); Potassium 4.6 mmol/L (3.5-5.1); Sodium 137 mmol/L (135-145); Total Bilirubin 0.6 mg/dl (0.2-1.3); Total Protein 6.2 g/dl (6.3-8.2); eGFR > 60.00
[2023-09-16 13:01] LABS: % Basophils 0.5 % (0-2); % Immature Granulocytes 0.7 % (0-0.5); % Lymphocytes 13.5 % (20.5-51.1); % Monocytes 8.7 % (1.7-9.3); % Neutrophils 74.6 % (42.2-75.2); Absolute Eosinophils 0.2 10^3/uL (0-0.7); Absolute Immature Granulocytes 0.1 10^3/uL (0-0.05); Absolute Lymphocytes 1.2 10^3/uL (1.2-3.4); Absolute Monocytes 0.7 10^3/uL (0.1-0.6); Absolute Neutrophils 6.4 10^3/uL (1.4-6.5); Hematocrit 34.3 % (39.0-52.0); Hemoglobin 11.6 g/dL (13.0-18.0); Mean Corp Hgb Conc. 33.8 g/dL (33.0-37.0); Mean Corpuscular Hgb 30.5 pg (27.0-31.0); Mean Corpuscular Volume 90.3 fL (80.0-94.0); Mean Platelet Volume 9.7 fL (7.4-10.4); Nucleated Red Blood Cells % 0 % (-); Platelet Count 247 10^3/uL (130-400); Red Cell Dist. Width 13.2 % (11.5-14.5); White Blood Cell Count 8.6 10^3/uL (4.8-10.8)
== END ==
LOC: REG 10:15
PROVIDERS: ATTENDING PHYSICIAN Internal Medicine Hematology & Oncology; FAMILY PHYSICIAN Student in an Organized Health Care Education/Training Program
DX: C61 Malignant neoplasm of prostate (principal)
CPT/HCPCS: 36415; 80053; 85025

== ENCOUNTER 2023-09-17 17:50 | Emergency (ER) | payer OTHER, SELFPAY ==
[2023-09-17 17:52] VITALS: BP 145/77
[2023-09-17 18:09] LABS: % Basophils 0.2 % (0-2); % Eosinophils 0.2 % (0-6); % Immature Granulocytes 0.5 % (0-0.5); % Lymphocytes 6.1 % (20.5-51.1); % Monocytes 1.9 % (1.7-9.3); % Neutrophils 91.1 % (42.2-75.2); Absolute Lymphocytes 0.5 10^3/uL (1.2-3.4); Absolute Monocytes 0.2 10^3/uL (0.1-0.6); Hematocrit 32.9 % (39.0-52.0); Hemoglobin 11.7 g/dL (13.0-18.0); Mean Corp Hgb Conc. 35.6 g/dL (33.0-37.0); Mean Corpuscular Hgb 30.9 pg (27.0-31.0); Mean Corpuscular Volume 86.8 fL (80.0-94.0); Mean Platelet Volume 9.2 fL (7.4-10.4); Nucleated Red Blood Cells % 0 % (-); Platelet Count 219 10^3/uL (130-400); Red Blood Cell Count 3.79 10^6/uL (4.70-6.10); Red Cell Dist. Width 13.1 % (11.5-14.5); White Blood Cell Count 8.8 10^3/uL (4.8-10.8)
[2023-09-17 18:34] LABS: ALT (SGPT) 35 U/L (0-50); AST (SGOT) 43 U/L (17-59); Albumin 3.7 g/dl (3.5-5.0); Alkaline Phosphatase 128 U/L (38-126); Blood Urea Nitrogen 21 mg/dl (9-20); Calcium 8.6 mg/dl (8.4-10.2); Carbon Dioxide 22 mmol/L (22-30); Chloride 105 mmol/L (98-107); Glucose 118 mg/dl (70-99); Sodium 136 mmol/L (135-145); Total Bilirubin 0.7 mg/dl (0.2-1.3); Total Protein 6.4 g/dl (6.3-8.2); eGFR > 60.00
--- NOTE | 2023-09-17 18:37 | ED.GENMED ---
History of Present Illness
General
Chief Complaint: Fever
Source: patient
Exam Limitations: none
Time Seen by Provider: 09/17/23 18:34
Nursing documentation reviewed up to this point in time: agreed with
History of Present Illness
History of Present Illness:
78-year-old male with history of endovascular aneurysm repair, infrarenal AAA 09/02/23, HLD, prostate cancer received his first dose of chemotherapy, Taxotere today 11 a.m. Peralta well until 3 p.m. when he developed chills and fever of 102.4 Took
nothing for the fever. Presents feeling better. states 'he was really sick, shaking with chills.' Pt denies h/a, CP, SOB, nausea/diarrhea. Denies cough, UTI symptoms, abd pain.
Progestin 10 mg BID
Flomax BID
Nubeqa BID
Lipitor
Baby ASA
Orgovyx 120 mg daily
Past History
Past History
ED Past Medical History: Cancer (Prostate cancer) and Hypercholesterolemia
ED Past Surgical History: Appendectomy, Cholecystectomy and Other (Repair of AAA, hernia)
Social History
Tobacco: Non-smoker
Alcohol: None
Personal:
Living: with family
Review of Systems
Review of Systems
Allergies reviewed?: Yes
All Other Systems: ROS reviewed and negative except as documented in HPI and ROS
Constitutional: Reports fever and chills
EENT: Denies sore throat
Respiratory: Denies cough or trouble breathing
Cardiac: Denies chest pain
ABD/GI: Denies abdominal pain, nausea, vomiting or diarrhea
: Denies dysuria, frequency, flank pain or difficulty voiding
Musculoskeletal: Reports no symptoms
Skin: Reports no symptoms
Neurological: Reports no symptoms
Phy Exam
Physical Exam
Physical Exam:
GENERAL: No acute distress. A&Ox3.
CONSTITUTIONAL: 102.4 po
EYES: PERRL, conjunctivae normal
ENMT: moist mucus membranes, Pharynx nl
RESPIRATORY: Regular respirations, nonlabored, lungs clear.
CARDIOVASCULAR: Regular rate and rhythm, no murmurs, no rubs.
GI: Soft, nontender, normal BS
MUSCULOSKELETAL: Moves with ease. Well perfused.
SKIN: Warm, dry, pink
PSYCH: Normal mood and affect. Well kept, interactive and appropriate
NEUROLOGIC: Awake, alert and oriented. No focal neurological deficits
Course
Orders/Labs/Results
Orders:
Orders
09/17/23 18:02
CMP [Comprehensive Metabolic Panel] Urgent
Complete Blood Count/With Diff Urgent
09/17/23 18:47
0.9% Sodium Chloride 1000 ml [Nss] 1,000 ml IV BOLUS
Acetaminophen [Tylenol] 1,000 mg .ROUTE .STK-MED ONE
Acetaminophen [Tylenol] 1,000 mg PO NOW STA
09/17/23 19:01
COVID-19 Antigen Urgent
Source: Nasal Swab
Lactic Acid Urgent
Blood Culture Urgent
MIREYA Source: Blood/Venous
Specimen Description:
09/17/23 21:03
Urinalysis Reflex To Culture Urgent
Date Specimen was Collected: 09/17/23
Time Specimen was Collected: 19:56
Abnormal Lab Results
09/17/23 09/17/23
18:02 21:03
RBC 3.79 L 10^6/uL
(4.70-6.10)
Hgb 11.7 L g/dL
(13.0-18.0)
Hct 32.9 L %
(39.0-52.0)
Absolute Neuts (auto) 8.0 H 10^3/uL
(1.4-6.5)
Absolute Lymphs (auto) 0.5 L 10^3/uL
(1.2-3.4)
Neutrophils % 91.1 H %
(42.2-75.2)
Lymphocytes % 6.1 L %
(20.5-51.1)
BUN 21 H mg/dl
(9-20)
Glucose 118 H mg/dl
(70-99)
Alkaline Phosphatase 128 H U/L
(38-126)
Urine Ketones 1+ A
(Negative)
09/17/23 18:02
09/17/23 18:02
Vital Signs
Initial and Last Documented VS:
Initial Vital Signs
Temp Pulse Resp BP Pulse Ox
99.8 F 99 18 145/77 98
09/17/23 17:52 09/17/23 17:52 09/17/23 17:52 09/17/23 17:52 09/17/23 17:52
Last Documented Vital Signs
Temp Pulse Resp BP Pulse Ox
99.1 F 89 18 112/70 100
09/17/23 22:01 09/17/23 22:01 09/17/23 22:01 09/17/23 22:01 09/17/23 22:01
MDM/Problems Addressed
Differential Diagnosis Includes:
UTI, bacteremia
MDM/Problems Addressed:
78-year-old male with history of endovascular aneurysm repair, infrarenal AAA 09/02/23, HLD, prostate cancer received his first dose of chemotherapy, Taxotere today 11 a.m. Peralta well until 3 p.m. when he developed chills and fever of 102.4 Took
nothing for the fever. Presents feeling better. states 'he was really sick, shaking with chills.' Pt denies h/a, CP, SOB, nausea/diarrhea. Denies cough, UTI symptoms
Temp for this examiner 102.4 po
NAD
9:22 PM
CBC unremarkable
unremarkable
UA negative
COVID-negative
After Tylenol and IVFs temperature is 98.[address] Magdalinski consulted via [employer], given FUO, recent chemo, labs unremarkable, now afebrile, he agrees pt can be discharged
Pt wants to go home
No clear source of fever.
Pt totally nontoxic appearing.
Pt will contact Dr. Perez tomorrow, return instructions discussed.
*Critical Care Note
Total Time (30-74mins, 75-104mins- exclusive of procedures): Not Applicable
ED Attending Note
-
Portions of this chart may have been created with voice recognition software.� Occasional wrong word or��sound alike� substitutions may have occurred due to the inherent limitations of voice recognition software.
Discharge Plan
Departure
Patient Disposition: Home (Routine Discharge)
Date of Disposition: 09/17/23
Time of Disposition: 21:53
Patient with high blood pressure during this ER visit?: No
Condition: Good
Discharge Problem:
Fever
Instructions: Fever, Adult (DC)
Prescriptions:
No Action
atorvastatin [Lipitor] 20 mg Tablet
20 mg PO HS
aspirin 81 mg Tablet,Delayed Release (Dr/Ec)
81 mg PO HS
tamsulosin [Flomax] 0.4 mg Capsule
0.4 mg PO DAILY
Orgovyx 120 mg Tablet
120 mg PO DAILY
Rx Instructions:
at 1000
Nubeqa 300 mg Tablet
600 mg PO BID
Referrals:
Lou Hernandez MD [Family Provider] -
Activity Restrictions/Additional Instructions:
As we discussed, take Tylenol 650 mg every 6 hours for the next 24 hours while awake, then as needed for fever.
I notified Dr. Jack who is the Oncologist quality controller for Dr. Perez and he says you can go home.
Contact Dr. Perez tomorrow and update him on how you are doing.
Interventions
Interventions:
*Risk Screen - Suicide Last Done: 09/17/23 17:52
*General Assessment Last Done: 09/17/23 17:52
*Neglect/Abuse Screening Last Done: 09/17/23 17:52
ED- Fall Risk Assessment Last Done: 09/17/23 19:14
*ED COVID-19 Vaccine History Last Done: 09/17/23 17:52
*Nursing Disposition Last Done: 09/17/23 22:03
ED- Neurological Assessment Last Done: 09/17/23 19:14
ED-Skin Assessment Last Done: 09/17/23 19:14
Discharge Date and Time
Discharge Date/Time: 09/17/23 22:06
Print Language: KOREAN
[2023-09-17] MEDS: TYLENOL 1000 MG PO (18:53)
[2023-09-17 18:54] VITALS: BMI 22.3
[2023-09-17] MEDS: NSS 1000 IV (19:00)
[2023-09-17 19:02] VITALS: BP 114/62
[2023-09-17 19:33] LABS: COVID-19 Antigen Negative (Negative); Lactic Acid 1.5 mmol/L (0.7-2.0)
[2023-09-17 20:00] VITALS: BP 107/63
[2023-09-17 21:09] LABS: Urine Albumin Negative (Neg - Trace); Urine Bilirubin Negative (Negative); Urine Character Clear (Clear); Urine Color Yellow; Urine Glucose Negative (Negative); Urine Ketone 1+ (Negative); Urine Leukocyte Negative (Negative); Urine Nitrite Negative (Negative); Urine Occult Blood Negative (Negative); Urine Specific Gravity 1.015 (<1.030); Urine Urobilinogen Negative (Neg - 1+)
[2023-09-17 22:01] VITALS: BP 112/70
== END 2023-09-17 22:06 | disposition home or self-care (01) ==
LOC: EMR 17:50
PROVIDERS: Registered Nurse; EMERGENCY PHYSICIAN Student in an Organized Health Care Education/Training Program; FAMILY PHYSICIAN Student in an Organized Health Care Education/Training Program
DX: R50.9 Fever, unspecified (principal); E78.00 Pure hypercholesterolemia, unspecified; Z85.46 Personal history of malignant neoplasm of prostate; Z86.79 Personal history of other diseases of the circulatory system; Z90.49 Acquired absence of other specified parts of digestive tract
CPT/HCPCS: 99282; 96360; 80053; 81003; 83605; 85025; 87040; 87811

== ENCOUNTER → 2023-09-24 09:17 | Outpatient (REF) | payer OTHER, SELFPAY ==
[2023-09-24 10:13] LABS: % Basophils 2.4 % (0-2); % Eosinophils 2.4 % (0-6); % Immature Granulocytes 1.2 % (0-0.5); % Lymphocytes 38.5 % (20.5-51.1); % Monocytes 10.7 % (1.7-9.3); % Neutrophils 44.8 % (42.2-75.2); Absolute Basophils 0.1 10^3/uL (0-0.2); Absolute Eosinophils 0.1 10^3/uL (0-0.7); Absolute Monocytes 0.3 10^3/uL (0.1-0.6); Absolute Neutrophils 1.1 10^3/uL (1.4-6.5); Hematocrit 33.9 % (39.0-52.0); Hemoglobin 11.6 g/dL (13.0-18.0); Mean Corp Hgb Conc. 34.2 g/dL (33.0-37.0); Mean Corpuscular Hgb 30.4 pg (27.0-31.0); Mean Platelet Volume 10.1 fL (7.4-10.4); Nucleated Red Blood Cells % 0 % (-); Platelet Count 222 10^3/uL (130-400); Red Blood Cell Count 3.81 10^6/uL (4.70-6.10); Red Cell Dist. Width 12.6 % (11.5-14.5); White Blood Cell Count 2.5 10^3/uL (4.8-10.8)
[2023-09-24 10:45] LABS: ALT (SGPT) 36 U/L (0-50); AST (SGOT) 36 U/L (17-59); Albumin 3.8 g/dl (3.5-5.0); Alkaline Phosphatase 108 U/L (38-126); Blood Urea Nitrogen 17 mg/dl (9-20); Calcium 9.4 mg/dl (8.4-10.2); Carbon Dioxide 26 mmol/L (22-30); Chloride 104 mmol/L (98-107); Glucose 125 mg/dl (70-99); Sodium 139 mmol/L (135-145); Total Bilirubin 0.8 mg/dl (0.2-1.3); Total Protein 6.5 g/dl (6.3-8.2); eGFR > 60.00
== END ==
LOC: REG 09:17
PROVIDERS: ATTENDING PHYSICIAN Internal Medicine Hematology & Oncology; FAMILY PHYSICIAN Student in an Organized Health Care Education/Training Program
DX: C61 Malignant neoplasm of prostate (principal)
CPT/HCPCS: 36415; 80053; 85025

== ENCOUNTER → 2023-10-07 07:51 | Outpatient (REF) | payer OTHER, SELFPAY ==
[2023-10-07 09:27] LABS: % Basophils 0.8 % (0-2); % Eosinophils 0.1 % (0-6); % Immature Granulocytes 2.7 % (0-0.5); % Lymphocytes 20.2 % (20.5-51.1); % Monocytes 9.6 % (1.7-9.3); % Neutrophils 66.6 % (42.2-75.2); Absolute Basophils 0.1 10^3/uL (0-0.2); Absolute Immature Granulocytes 0.3 10^3/uL (0-0.05); Absolute Lymphocytes 2.4 10^3/uL (1.2-3.4); Absolute Monocytes 1.1 10^3/uL (0.1-0.6); Absolute Neutrophils 7.8 10^3/uL (1.4-6.5); Hematocrit 37.6 % (39.0-52.0); Hemoglobin 12.6 g/dL (13.0-18.0); Mean Corp Hgb Conc. 33.5 g/dL (33.0-37.0); Mean Corpuscular Hgb 30.4 pg (27.0-31.0); Mean Corpuscular Volume 90.8 fL (80.0-94.0); Mean Platelet Volume 9.4 fL (7.4-10.4); Nucleated Red Blood Cells % 0 % (-); Platelet Count 205 10^3/uL (130-400); Red Blood Cell Count 4.14 10^6/uL (4.70-6.10); Red Cell Dist. Width 13.6 % (11.5-14.5); White Blood Cell Count 11.7 10^3/uL (4.8-10.8)
[2023-10-07 10:35] LABS: ALT (SGPT) 35 U/L (0-50); AST (SGOT) 45 U/L (17-59); Albumin 3.9 g/dl (3.5-5.0); Alkaline Phosphatase 99 U/L (38-126); Blood Urea Nitrogen 22 mg/dl (9-20); Calcium 9.3 mg/dl (8.4-10.2); Carbon Dioxide 28 mmol/L (22-30); Chloride 103 mmol/L (98-107); Glucose 87 mg/dl (70-99); Potassium 4.3 mmol/L (3.5-5.1); Sodium 138 mmol/L (135-145); Total Bilirubin 0.7 mg/dl (0.2-1.3); Total Protein 6.5 g/dl (6.3-8.2); eGFR > 60.00
== END ==
LOC: REG 07:51
PROVIDERS: ATTENDING PHYSICIAN Internal Medicine Hematology & Oncology; FAMILY PHYSICIAN Student in an Organized Health Care Education/Training Program
DX: C61 Malignant neoplasm of prostate (principal)
CPT/HCPCS: 36415; 80053; 85025

== ENCOUNTER → 2023-10-07 13:36 | Outpatient (REF) | payer OTHER, SELFPAY | LOC: HWRAD 13:36 | PROVIDERS: ATTENDING PHYSICIAN Physician Assistant; FAMILY PHYSICIAN Student in an Organized Health Care Education/Training Program; OTHER PHYSICIAN Internal Medicine Hematology & Oncology; REFERRING PHYSICIAN Specialist | DX: I71.40 Abdominal aortic aneurysm, without rupture, unspecified (principal) | CPT/HCPCS: 74174; Q9967 ==

== ENCOUNTER → 2023-10-28 07:43 | Outpatient (REF) | payer OTHER, SELFPAY ==
[2023-10-28 09:41] LABS: % Basophils 0.8 % (0-2); % Eosinophils 0.1 % (0-6); % Immature Granulocytes 3.2 % (0-0.5); % Lymphocytes 15.6 % (20.5-51.1); % Neutrophils 70.3 % (42.2-75.2); Absolute Basophils 0.1 10^3/uL (0-0.2); Absolute Immature Granulocytes 0.4 10^3/uL (0-0.05); Absolute Lymphocytes 1.8 10^3/uL (1.2-3.4); Absolute Monocytes 1.1 10^3/uL (0.1-0.6); Hematocrit 38.8 % (39.0-52.0); Hemoglobin 13.2 g/dL (13.0-18.0); Mean Corpuscular Hgb 32.1 pg (27.0-31.0); Mean Corpuscular Volume 94.4 fL (80.0-94.0); Mean Platelet Volume 9.6 fL (7.4-10.4); Nucleated Red Blood Cells % 0 % (-); Platelet Count 222 10^3/uL (130-400); Red Blood Cell Count 4.11 10^6/uL (4.70-6.10); Red Cell Dist. Width 14.2 % (11.5-14.5); White Blood Cell Count 11.4 10^3/uL (4.8-10.8)
[2023-10-28 10:15] LABS: ALT (SGPT) 42 U/L (0-50); AST (SGOT) 53 U/L (17-59); Albumin 3.9 g/dl (3.5-5.0); Alkaline Phosphatase 103 U/L (38-126); Blood Urea Nitrogen 17 mg/dl (9-20); Calcium 9.5 mg/dl (8.4-10.2); Carbon Dioxide 31 mmol/L (22-30); Chloride 102 mmol/L (98-107); Glucose 91 mg/dl (70-99); Sodium 141 mmol/L (135-145); Total Bilirubin 0.7 mg/dl (0.2-1.3)
[2023-10-28 10:25] LABS: Total Protein 6.5 g/dl (6.3-8.2); eGFR > 60.00
== END ==
LOC: REG 07:43
PROVIDERS: ATTENDING PHYSICIAN Internal Medicine Hematology & Oncology; FAMILY PHYSICIAN Student in an Organized Health Care Education/Training Program; OTHER PHYSICIAN Specialist; REFERRING PHYSICIAN Surgery Vascular Surgery
DX: C61 Malignant neoplasm of prostate (principal)
CPT/HCPCS: 36415; 80053; 85025

== ENCOUNTER → 2023-10-29 13:35 | Outpatient (REF) | payer OTHER, SELFPAY ==
[2023-10-29 13:38] LABS: PSA, Total - Diagnostic 2.91 ng/ml (0.0-4.0)
== END ==
LOC: OIDL 13:35
PROVIDERS: ATTENDING PHYSICIAN Internal Medicine Hematology & Oncology
DX: C61 Malignant neoplasm of prostate (principal)
CPT/HCPCS: 84153

== ENCOUNTER → 2023-11-18 06:45 | Outpatient (REF) | payer OTHER, SELFPAY ==
[2023-11-18 07:36] LABS: % Basophils 0.7 % (0-2); % Eosinophils 0.1 % (0-6); % Immature Granulocytes 1.7 % (0-0.5); % Lymphocytes 18.4 % (20.5-51.1); % Monocytes 10.1 % (1.7-9.3); Absolute Basophils 0.1 10^3/uL (0-0.2); Absolute Immature Granulocytes 0.2 10^3/uL (0-0.05); Absolute Lymphocytes 1.6 10^3/uL (1.2-3.4); Absolute Monocytes 0.9 10^3/uL (0.1-0.6); Hematocrit 39.4 % (39.0-52.0); Hemoglobin 13.2 g/dL (13.0-18.0); Mean Corp Hgb Conc. 33.5 g/dL (33.0-37.0); Mean Corpuscular Hgb 31.8 pg (27.0-31.0); Mean Corpuscular Volume 94.9 fL (80.0-94.0); Mean Platelet Volume 9.1 fL (7.4-10.4); Nucleated Red Blood Cells % 0 % (-); Platelet Count 251 10^3/uL (130-400); Red Blood Cell Count 4.15 10^6/uL (4.70-6.10); Red Cell Dist. Width 14.8 % (11.5-14.5); White Blood Cell Count 8.7 10^3/uL (4.8-10.8)
[2023-11-18 08:05] LABS: ALT (SGPT) 34 U/L (0-50); AST (SGOT) 49 U/L (17-59); Albumin 3.8 g/dl (3.5-5.0); Alkaline Phosphatase 89 U/L (38-126); Blood Urea Nitrogen 19 mg/dl (9-20); Calcium 9.7 mg/dl (8.4-10.2); Carbon Dioxide 31 mmol/L (22-30); Chloride 104 mmol/L (98-107); Glucose 106 mg/dl (70-99); Potassium 4.9 mmol/L (3.5-5.1); Sodium 142 mmol/L (135-145); Total Bilirubin 0.7 mg/dl (0.2-1.3); Total Protein 6.4 g/dl (6.3-8.2); eGFR > 60.00
[2023-11-18 08:29] LABS: PSA, Total - Diagnostic 1.94 ng/ml (0.0-4.0)
== END ==
LOC: REG 06:45
PROVIDERS: ATTENDING PHYSICIAN Internal Medicine Hematology & Oncology; FAMILY PHYSICIAN Student in an Organized Health Care Education/Training Program; REFERRING PHYSICIAN Specialist
DX: C61 Malignant neoplasm of prostate (principal)
CPT/HCPCS: 36415; 80053; 84153; 85025

== ENCOUNTER → 2023-12-09 06:47 | Outpatient (REF) | payer OTHER, SELFPAY ==
[2023-12-09 07:58] LABS: % Basophils 0.5 % (0-2); % Eosinophils 0.1 % (0-6); % Immature Granulocytes 1.2 % (0-0.5); % Lymphocytes 19.3 % (20.5-51.1); % Monocytes 8.6 % (1.7-9.3); % Neutrophils 70.3 % (42.2-75.2); Absolute Basophils 0.1 10^3/uL (0-0.2); Absolute Immature Granulocytes 0.1 10^3/uL (0-0.05); Absolute Lymphocytes 1.9 10^3/uL (1.2-3.4); Absolute Monocytes 0.8 10^3/uL (0.1-0.6); Absolute Neutrophils 6.8 10^3/uL (1.4-6.5); Hematocrit 38.8 % (39.0-52.0); Hemoglobin 12.7 g/dL (13.0-18.0); Mean Corp Hgb Conc. 32.7 g/dL (33.0-37.0); Mean Corpuscular Hgb 31.8 pg (27.0-31.0); Mean Platelet Volume 9.9 fL (7.4-10.4); Nucleated Red Blood Cells % 0 % (-); Platelet Count 219 10^3/uL (130-400); Red Cell Dist. Width 14.9 % (11.5-14.5); White Blood Cell Count 9.7 10^3/uL (4.8-10.8)
[2023-12-09 08:13] LABS: ALT (SGPT) 34 U/L (0-50); AST (SGOT) 41 U/L (17-59); Albumin 3.8 g/dl (3.5-5.0); Alkaline Phosphatase 71 U/L (38-126); Blood Urea Nitrogen 16 mg/dl (9-20); Calcium 9.4 mg/dl (8.4-10.2); Carbon Dioxide 28 mmol/L (22-30); Chloride 106 mmol/L (98-107); Glucose 100 mg/dl (70-99); Potassium 4.5 mmol/L (3.5-5.1); Sodium 144 mmol/L (135-145); Total Bilirubin 0.4 mg/dl (0.2-1.3); Total Protein 6.3 g/dl (6.3-8.2); eGFR > 60.00
[2023-12-09 09:05] LABS: PSA, Total - Diagnostic 1.36 ng/ml (0.0-4.0)
== END ==
LOC: REG 06:47
PROVIDERS: ATTENDING PHYSICIAN Internal Medicine Hematology & Oncology; FAMILY PHYSICIAN Student in an Organized Health Care Education/Training Program
DX: C61 Malignant neoplasm of prostate (principal)
CPT/HCPCS: 36415; 80053; 84153; 85025

== ENCOUNTER 2023-12-10 23:31 | Inpatient (IN) | payer OTHER, SELFPAY ==
[2023-12-10] VITALS (18 sets, daily range): BP systolic 62–89; BP diastolic 41–61; BMI 23.9
[2023-12-10 21:30] LABS: % Basophils 0.3 % (0-2); % Immature Granulocytes 1.1 % (0-0.5); % Lymphocytes 3.6 % (20.5-51.1); % Monocytes 4.8 % (1.7-9.3); % Neutrophils 90.2 % (42.2-75.2); Absolute Basophils 0.1 10^3/uL (0-0.2); Absolute Immature Granulocytes 0.2 10^3/uL (0-0.05); Absolute Lymphocytes 0.8 10^3/uL (1.2-3.4); Absolute Monocytes 1.1 10^3/uL (0.1-0.6); Hematocrit 31.2 % (39.0-52.0); Hemoglobin 10.6 g/dL (13.0-18.0); Mean Corpuscular Hgb 31.2 pg (27.0-31.0); Mean Corpuscular Volume 91.8 fL (80.0-94.0); Mean Platelet Volume 9.5 fL (7.4-10.4); Nucleated Red Blood Cells % 0 % (-); Platelet Count 125 10^3/uL (130-400); Red Cell Dist. Width 15.4 % (11.5-14.5); White Blood Cell Count 22.2 10^3/uL (4.8-10.8)
[2023-12-10 21:47] LABS: ALT (SGPT) 32 U/L (0-50); AST (SGOT) 67 U/L (17-59); Albumin 2.8 g/dl (3.5-5.0); Alkaline Phosphatase 59 U/L (38-126); Blood Urea Nitrogen 20 mg/dl (9-20); Calcium 7.7 mg/dl (8.4-10.2); Carbon Dioxide 22 mmol/L (22-30); Chloride 106 mmol/L (98-107); Glucose 105 mg/dl (70-99); Potassium 3.1 mmol/L (3.5-5.1); Sodium 139 mmol/L (135-145); Total Bilirubin 0.7 mg/dl (0.2-1.3); eGFR > 60.00
[2023-12-10] MEDS: NSS 1000 IV ×2 (21:55→22:18)
[2023-12-10 21:58] LABS: Troponin I 0.019 ng/ml
[2023-12-10] MEDS: KCL ELIXIR 40 MEQ PO (21:58)
--- NOTE | 2023-12-10 22:03 | ED.GENMED ---
History of Present Illness
General
Chief Complaint: Blood Pressure Problem
Source: patient
Exam Limitations: none
Time Seen by Provider: 12/10/23 21:48
History of Present Illness
History of Present Illness:
78-year-old male currently being treated for prostate cancer. Presents hypotensive and weak. This typically happens after his chemo treatment. He received 1 earlier today. Also had shaking chills and fever at home although this is also not
unusual. Denies focal infectious symptoms otherwise.
Past History
Past History
ED Past Medical History: Cancer (Prostate cancer) and Hypercholesterolemia
ED Past Surgical History: Appendectomy, Cholecystectomy and Other (Repair of AAA, hernia)
Social History
Tobacco: Non-smoker
Alcohol: None
Personal:
Living: with family
Review of Systems
Review of Systems
All Other Systems: Not applicable
Constitutional: Reports fever and chills
Respiratory: Reports no symptoms
Cardiac: Reports no symptoms
ABD/GI: Reports no symptoms
: Reports no symptoms
Phy Exam
Physical Exam
Physical Exam:
GENERAL: Alert and oriented in no apparent distress
EYE: Orbits normal.
NECK: Supple
CARDIAC: Regular rate and rhythm without any obvious murmurs. Port right upper chest wall
LUNGS: Clear breath sounds,normal
ABDOMEN: Soft, without focal tenderness or distention
NEUROLOGICAL: Alert and oriented , grossly non-focal
SKIN: Warm and dry, no rash or lesion, no discoloration, skin intact.
MUSCULOSKELETAL: No edema,no deformity.Good color
PSYCH: Normal and appropriate interaction.
Course
Orders/Labs/Results
Orders:
Orders
12/10/23 21:07
Electrocardiogram (*1) Urgent
Reason for Study: Chest Pain
Cardiac Monitoring- Treatment ONCE
EKG- Treatment ONCE
IV Insert/Care/Rem.- Treatment PRN
O2 Therapy [RESP] Urgent
Titrate/Wean O2 to maintain O2 sat greater than (%): 90
Special Instructions: Maintain sats >/=90%
Pulse Ox/spot Check [RESP] Urgent
Quantity: 1
Special Instructions: ON ROOM AIR
12/10/23 21:22
Complete Blood Count/With Diff Urgent
Comprehensive Metabolic Panel Urgent
Troponin I Urgent
12/10/23 21:51
Potassium Chloride 10% Elixir [KCl Elixir] 40 meq PO NOW STA
12/10/23 21:54
0.9% Sodium Chloride 1000 ml [Nss] 1,000 ml IV BOLUS
12/10/23 21:59
IV Insert/Care/Rem.- Treatment PRN
CR Chest Portable - 1 View Urgent
Comment:
Reason For Exam: sepsis
Reason Study Needs to be Portable: Unable to Transport
Pulse Ox/cont/shift [RESP] Urgent
Quantity: 1
12/10/23 22:02
0.9% Sodium Chloride 1000 ml [Nss] 1,000 ml IV BOLUS
Piperacillin/Tazo 4.5 Gram [Zosyn] 4.5 gram in 100 ml IV NOW
12/10/23 22:13
COVID-19 Antigen Urgent
Source: Nasal Swab
Lactic Acid Q4H
Comment: CANCEL 2nd LACTIC ACID IF 1st LACTIC ACID IS LESS THAN 2
Blood Culture Routine
MIREYA Source: Blood/Venous
Specimen Description:
Blood Culture Urgent
MIREYA Source: Blood/Venous
Specimen Description:
Influenza A+B Rapid Molecular Urgent
MIREYA Source: Nasal Swab
Specimen Description:
12/10/23 22:46
NORepinephrine 4 MG/250 ML [Levophed] 4 mg in 250 ml IV NOW
Initial dose in mcg/min, then titrate:: 2
Titrate to keep:: MAP > 65 mmHg
Titrate by mcg/min:: 1-2 mcg/min
Frequency of titrations (minutes):: 5
Maximum dose in ICU in mcg/min:: 30
Maximum dose in IMU in mcg/min:: 8
Maximum dose in IVU in mcg/min:: 4
Begin to taper infusion when:: Remained at goal for 4hrs
Taper by mcg/min:: 1-2 mcg/min
Frequency of taper (minutes) if patient maintains goal:: 30
Taper to off?: Yes
If infusion off & no longer maintaining goal:: Contact Provider
12/10/23 22:47
NORepinephrine 4 MG/250 ML [Levophed] 4 mg in 250 ml .ROUTE .STK-MED
12/10/23 22:50
Hydrocortisone Sod Succinate [Solu-Cortef] 100 mg IV NOW STA
12/10/23 22:53
Vancomycin [Vancocin] 1,500 mg 0.9% Sodium Chloride [Nss] 20 ml 0.9% Sodium Chloride 250 ml [Nss] 250 ml IV NOW
12/11/23 00:51
Lactic Acid Q4H
Comment: CANCEL 2nd LACTIC ACID IF 1st LACTIC ACID IS LESS THAN 2
Abnormal Lab Results
12/10/23 12/10/23
21:22 22:13
WBC 22.2 H 10^3/uL
(4.8-10.8)
RBC 3.40 L 10^6/uL
(4.70-6.10)
Hgb 10.6 L g/dL
(13.0-18.0)
Hct 31.2 L %
(39.0-52.0)
MCH 31.2 H pg
(27.0-31.0)
RDW 15.4 H %
(11.5-14.5)
Plt Count 125 L D 10^3/uL
(130-400)
Abs Immat Gran (auto) 0.2 H 10^3/uL
(0-0.05)
Absolute Neuts (auto) 20.0 H 10^3/uL
(1.4-6.5)
Absolute Lymphs (auto) 0.8 L 10^3/uL
(1.2-3.4)
Absolute Monos (auto) 1.1 H 10^3/uL
(0.1-0.6)
Immature Gran % 1.1 H %
(0-0.5)
Neutrophils % 90.2 H %
(42.2-75.2)
Lymphocytes % 3.6 L %
(20.5-51.1)
Potassium 3.1 L D mmol/L
(3.5-5.1)
Glucose 105 H mg/dl
(70-99)
Lactic Acid 2.1 H mmol/L
(0.7-2.0)
Calcium 7.7 L D mg/dl
(8.4-10.2)
AST 67 H U/L
(17-59)
Total Protein 5.0 L D g/dl
(6.3-8.2)
Albumin 2.8 L g/dl
(3.5-5.0)
12/10/23 21:22
12/10/23 21:22
Vital Signs
Initial and Last Documented VS:
Initial Vital Signs
Temp Pulse Resp Pulse Ox
98.0 F 100 19 96
12/10/23 21:10 12/10/23 21:10 12/10/23 21:10 12/10/23 21:10
Last Documented Vital Signs
Temp Pulse Resp BP Pulse Ox
98.8 F 96 22 97/66 96
12/11/23 00:39 12/11/23 01:30 12/11/23 01:30 12/11/23 01:30 12/11/23 01:30
*Radiology
Radiology exam reviewed: radiology read reviewed (Negative)
*Pulse Oximetry
Patient hypoxic: no
*EKG
Interpretation: abnormal
Comparison EKG: changes noted
Heart Rate: 110
Rate: tachycardiac
Rhythm: sinus
Byron: normal axis
Interval: normal interval
QRS Pattern: normal QRS
Ischemia: non-specific ST changes
*Mat[employer] Forming Machine Operator Interpretation
Rate: tachycardiac
Interpretation: abnormal
Heart Rate: 110
Rhythm: sinus
*Critical Care Note
Total Time (30-74mins, 75-104mins- exclusive of procedures): 40
Update Note
Update Note:
Patient has remained hypotensive. Add pressors. Urinalysis pending. Referred to hospitalist. Will add stress dose steroids
ED Attending Note
-
Portions of this chart may have been created with voice recognition software.� Occasional wrong word or��sound alike� substitutions may have occurred due to the inherent limitations of voice recognition software.
Discharge Plan
Departure
Patient Disposition: Admit
Date of Disposition: 12/10/23
Time of Disposition: 22:50
Presentation/result/management discussed w/ accepting MD/DO: Hospitalist
Discharge Problem:
Sepsis
Interventions
Interventions:
*General Assessment Last Done: 12/10/23 21:10
*Neglect/Abuse Screening Last Done: 12/10/23 21:10
ED- Fall Risk Assessment Last Done: 12/10/23 22:29
*Nursing Disposition Last Done: 12/11/23 00:35
ED- Cardiac Assessment Last Done: 12/10/23 22:29
ED- Neurological Assessment Last Done: 12/10/23 22:29
ED- Pulmonary Assessment Last Done: 12/10/23 22:29
Discharge Date and Time
Discharge Date/Time: 12/11/23 00:35
[2023-12-10] MEDS: ZOSYN 100 IV (22:17)
[2023-12-10 22:38] LABS: COVID-19 Antigen Negative (Negative)
[2023-12-10 22:39] LABS: Lactic Acid 2.1 mmol/L (0.7-2.0)
[2023-12-10] MEDS: SOLU-CORTEF 100 MG IV (22:53)
[2023-12-10] MEDS: LEVOPHED 250 IV (22:54)
[2023-12-10] MEDS: VANCOCIN 300 ML IV (23:16)
[2023-12-10] MEDS: VANCOCIN 300 MG IV (23:16)
[2023-12-11] VITALS (79 sets, daily range): BP systolic 80–117; BP diastolic 53–83; BMI 23.5; BMI 23.7
[2023-12-11 01:14] LABS: Lactic Acid 2.5 mmol/L (0.7-2.0)
[2023-12-11] MEDS: LR 1000 IV ×4 (01:20→19:53)
[2023-12-11] MEDS: SOLU-CORTEF 50 MG IV ×4 (01:23→23:38)
[2023-12-11 01:36] LABS: INR 1.48; PT 17.8 Sec (11.4-14.6)
--- NOTE | 2023-12-11 01:36 | PTCARENOTE ---
patient received from ED@0045, assessments per work list. alert and oriented. denies pain, nausea. pulse oximeter 88--90 on room air, 2 liters placed. nsr, sinus tach. right chest wall port with good blood return. levophed per work list. labs sent.
call palafox in hand
[2023-12-11 01:37] LABS: APTT 27.7 Sec (23.4-35.0)
[2023-12-11 01:39] LABS: Iron < 20 ug/dl (49-181); Total Iron Binding Capacity 262 ug/dl (261-462)
--- NOTE | 2023-12-11 01:48 | HPS.HSE ---
Family Physician
-
Family Physician: Lou Hernandez MD
Chief Complaint
-
Chills, Weakness
History of Present Illness
Patient is a 78y M with PMH significant for metastatic prostate cancer on chemotherapy who presents to ED complaining of fever at home, chills and weakness. Patient was recently diagnosed with prostate cancer and started on systemic chemotherapy
with taxotere. He has completed 5 sessions thus far, with his most recent treatment being today (12/09). Patient states that following each session he has felt poorly - including fever at home, weakness and malaise. Today his symptoms seemed much
more severe. Patient states that he did not do as well in pushing fluids before / after his scheduled chemo.
He denies any focal symptoms including sore throat, cough, N/V/D, urinary complaints, abdominal pain, etc.
In the ED, patient is not febrile; however, he is hypotensive with systolic BP as low as the 50s.
He was given IVFs and started on pressors in the ED.
Medical History
Past Medical History
Past Medical History: Reports Other
Additional Past Medical History:
Metastatic Prostate Cancer
AAA s/p EVAR
Past Surgical History: Reports Other
Additional Past Surgical History:
Appendectomy
Cholecystectomy
Right Inguinal Hernia Repair
Abdominal EVAR
R ACW Port Placement
Social History
Tobacco: Former Smoker (Quit in 1986. Approx 20 pack years total use.)
Alcohol: Occasional
Drug: None
Family History
Family History: Other (Longevity )
Allergies / Home Medications
Allergies reflects when Allergies were last updated in [employer].
Home Medications with original date entered in [employer]
Allergy/Medication List:
Allergies
Allergy/AdvReac Type Severity Reaction Status Date / Time
No Known Allergies Allergy Verified 12/10/23 21:10
Home Medications
aspirin 81 mg tablet,delayed release 81 mg PO HS Blood Clot Prevention/Tx 08/22/23
atorvastatin 20 mg tablet (Lipitor) 20 mg PO HS High Cholesterol 08/22/23
relugolix 120 mg tablet (Orgovyx) 120 mg PO DAILY@1000 prostate cancer 08/22/23
tamsulosin 0.4 mg capsule (Flomax) 0.4 mg PO DAILY Urinary Issue 08/22/23
darolutamide 300 mg tablet (Nubeqa) 600 mg PO BID 09/12/23
lidocaine-prilocaine 2.5 %-2.5 % topical cream 1 applic topical DAILYPRN PRN prior to port access 12/10/23
prednisone 5 mg tablet 5 mg PO BID 12/10/23
Review of Systems
-
History Source: Patient
A 12 point ROS was completed and negative except as noted: Yes
Constitutional: Reports Fever, Fatigue and Chills
EENT: Denies Sore Throat
Respiratory: Denies Cough or Trouble Breathing
Cardiac: Denies Chest Pain or Palpitations
Abdomen/GI: Denies Abdominal Pain, Nausea, Vomiting, Diarrhea or Constipated
: Denies Dysuria, Frequency or Flank Pain
Musculoskeletal: Denies Joint Pain or Edema
Neurological: Reports Weakness; Denies Dizzy or Headache
Psych: Denies Depression or Anxiety
Physical Exam
Vital Signs
Vital Signs
Temp Pulse Resp BP Pulse Ox
98.8 F 96 22 97/66 96
12/11/23 00:39 12/11/23 01:30 12/11/23 01:30 12/11/23 01:30 12/11/23 01:30
Physical Exam
General: Other (78y M flushed / ill-appearing. Awake and alert and able to answer all questions / follow commands.)
HEENT: Other (Dry MM. Pos JVD. Flushed facies.)
Respiratory: Other (Decreased BS bilaterally. Otherwise clear.)
Cardiac: S1/S2 and Regular Rhythm; No Murmur
GI: Soft, Non Tender, Non Distended and Normal Bowel Sounds
Musculoskeletal: No Clubbing, No Cyanosis, No Edema and Other (mild subungual hematomas of several digits - upper and lower extremities.)
Neuro: AO x 3
Laboratory Results
-
Laboratory Results
PT 17.8 Sec (11.4-14.6) H 12/11/23 01:02
INR 1.48 12/11/23 01:02
APTT 27.7 Sec (23.4-35.0) 12/11/23 01:02
Lactic Acid 2.5 mmol/L (0.7-2.0) H 12/11/23 00:51
Total Bilirubin 0.7 mg/dl (0.2-1.3) 12/10/23 21:22
AST 67 U/L (17-59) H 12/10/23 21:22
ALT 32 U/L (0-50) 12/10/23 21:22
Alkaline Phosphatase 59 U/L (38-126) 12/10/23 21:22
Troponin I 0.019 ng/ml 12/10/23 21:22
Impression/Plan
-
A/P: Patient is a 78y M with PMH significant for prostate cancer and AAA who present sto ED complaining of fever, fatigue and malaise.
Shock
- Admit for further evaluation and treatment.
- Shock is presumed septic in origin given reported fever at home, immunocompromise on chemo, etc.
- Continue volume resuscitation.
- Pressors as needed to maintain MAP / perfusion.
- Continue IV hydrocortisone for now given recent prednisone therapy and persistent hypotension.
- Empiric IV abx for now with Vanco / Zosyn.
- Follow up culture data and adjust as needed.
- Follow clinically for any new / focal complaints or symptoms.
Metastatic Prostate Cancer
- Currently on multi-treatment regimen including systemic taxotere.
- Hold PO medications acutely.
- Oncology evaluation for additional recommendations.
AAA s/p EVAR
- CT A/P done in the ED this evening shows small area of nodular enhancement c/w endoleak - not previously seen.
- Not likely related to current clinical presentation.
- Routine Vascular Surgery evaluation.
Anemia
- Hgb = 10.6 down from 12.7 a few days ago.
- No gross evidence of blood loss. Small endoleak on CT as noted above.
- Heme test stools. Iron studies. etc.
- Follow H&H for any changes.
Mild Hypokalemia
- Oral replacement given in the ED.
- IVFs with LR.
- Follow for improvement.
DVT Prophylaxis: SCDs
Code Status: DNR
--- NOTE | 2023-12-11 02:33 | W.PN.SEPSIS ---
Sepsis
Vital Signs
Temp Pulse Resp BP Pulse Ox
98.8 F 96 22 97/66 96
12/11/23 00:39 12/11/23 01:30 12/11/23 01:30 12/11/23 01:30 12/11/23 01:30
Physical Exam
Physical Exam:
A focused exam was performed after fluid resuscitation.
Capillary Refill
Bilateral Upper Extremity:
Matias Time: Less than 3 sec
Bilateral Lower Extremity:
Matias Time: Less than 3 sec
Pulse Evaluation
Bilateral Radial:
Pulse Evaluation: Present
Bilateral Dorsalis Pedis:
Pulse Evaluation: Present
[2023-12-11] MEDS: ZOSYN 50 IV ×4 (02:51→21:37)
--- NOTE | 2023-12-11 03:24 | PTCARENOTE ---
reassessed, sleeping unless disturbed. levophed titration per work list, call palafox in reach
[2023-12-11 05:39] LABS: Hematocrit 31.7 % (39.0-52.0); Hemoglobin 10.7 g/dL (13.0-18.0); Mean Corp Hgb Conc. 33.8 g/dL (33.0-37.0); Mean Corpuscular Hgb 31.3 pg (27.0-31.0); Mean Corpuscular Volume 92.7 fL (80.0-94.0); Mean Platelet Volume 9.4 fL (7.4-10.4); Platelet Count 143 10^3/uL (130-400); Red Blood Cell Count 3.42 10^6/uL (4.70-6.10); Red Cell Dist. Width 15.6 % (11.5-14.5)
[2023-12-11] MEDS: LEVOPHED 250 IV (05:40)
[2023-12-11 05:53] LABS: Lactic Acid 3.1 mmol/L (0.7-2.0)
[2023-12-11 06:00] LABS: ALT (SGPT) 36 U/L (0-50); AST (SGOT) 72 U/L (17-59); Albumin 2.7 g/dl (3.5-5.0); Alkaline Phosphatase 53 U/L (38-126); Blood Urea Nitrogen 18 mg/dl (9-20); Calcium 7.7 mg/dl (8.4-10.2); Carbon Dioxide 18 mmol/L (22-30); Chloride 110 mmol/L (98-107); Estimated Creatinine Clearance 53 ml/min; Glucose 134 mg/dl (70-99); Magnesium 1.4 mg/dl (1.6-2.3); Phosphorus 3.3 mg/dl (2.5-4.5); Potassium 3.7 mmol/L (3.5-5.1); Sodium 140 mmol/L (135-145); Total Bilirubin 0.6 mg/dl (0.2-1.3); Total Protein 4.9 g/dl (6.3-8.2); eGFR > 60.00
--- NOTE | 2023-12-11 06:14 | PTCARENOTE ---
rn care transition SHANNA updated with critical am labs. no new orders at this time
--- NOTE | 2023-12-11 08:10 | PHA.VAN.IN ---
Assessment
- Assessment
Renal Function: Appears similar to baseline (SCR slightly elevated at 1.1 vs ~0.8, BUN similar to baseline)
Concomitant Antimicrobials: piperacillin/tazobactam
AUC Dosing Plan
- Dosing Variables
Dosing Weight (kg): 68.5
Dosing CrCl (ml/min): 53
Vd coefficient (L/kg): 0.7
- Empiric Dosing
Initial / Loading Dose: 1500mg - 12/09 23:16
Maintenance Regimen: Vanc 1000mg Q24H starting 12/11 599; give 500mg x1 today to maintain level
Estimated AUC (mcg*h/mL): 441
Estimated Peak (mcg*h/mL): 30.4
Estimated Trough (mcg/ml): 10
Estimated Half Life (H): 14.3
Patient may eventually require change to Q12H interval depending on SCR trend
- Monitoring
No levels ordered at this time: consider levels in next few days
MRSA Screen: Ordered per protocol
Pharmacokinetics Vancomycin I
- -
Patient Age: 78
Patient Sex: Male
Vancomycin Day #: 1
Indication: Bacteremia
Requesting Provider: Dr. Araujo
Pertinent Antimicrobial Allergies:
NKDA
Height / Weight:
Height 5 ft 7 in
Actual Weight 68.5 kg
Pertinent Past Medical History: Metastatic prostate cancer
- Vital Signs / Lab Results
Temp Pulse Resp BP Pulse Ox
97.8 F 76 17 110/72 97
12/11/23 07:49 12/11/23 06:30 12/11/23 06:30 12/11/23 06:30 12/11/23 06:30
Lab Results - Hematology
12/10/23 12/11/23
21:22 05:00
WBC 22.2 H 51.0 H*
Lab Results - Chemistry
12/10/23 12/11/23
21:22 05:00
BUN 20 18
Creatinine 1.0 1.1
Estimated Creat Clear 53
Albumin 2.8 L 2.7 L
12/10/23 12/11/23 12/11/23
22:13 00:51 05:00
Lactic Acid 2.1 H 2.5 H 3.1 H
Microbiology Results
12/10/23 22:13 Influenza Types A & B (ZACHERY) - Final
Nasal Swab Negative for Influenza A & B, NAAT
Negative results must be combined with clinical observations
and patient history.
Nucleic Acid Amplification test (NAAT)performed on the
[employer] platform.
--- NOTE | 2023-12-11 08:29 | CON.ONC ---
Impression
Impression
Septic shock
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
Leukocytosis
High risk metastatic prostate cancer with extensive bone metastasis, [place] 4+5 = 9
Plan
Plan
Agree with broad-spectrum antibiotics (vancomycin + Zosyn), supportive care with pressors, stress dose steroids for treatment of septic shock.
Patient did NOT receive Neulasta so leukocytosis is real and although it may be elevated somewhat by stress dose steroids, there is definitely a leukemoid reaction in the potential for underlying severe infection.
Patient has a potential endovascular leak which complicates things. Vascular surgery will be seeing him.
This was scheduled to be his fifth out of 6 cycles of chemotherapy. At this point I will probably be holding off on his 6 cycle and just continue current hormonal therapy which includes Orgovyx + darolutamide.
Prednisone 5 mg PO BID is only being used as part of the chemotherapy protocol. It can be stopped going forward after he stabilizes as plans to go forward only include hormonal therapy alone.
Patient History
History of Present Illness
CC: Chills, fever 102, fall, weakness
Reason for oncology consultation: Sepsis, Prostate cancer
Family Physician: Lou Hernandez MD
HPI: 78y M with PMH significant for metastatic prostate cancer on Taxotere chemotherapy given yesterday 12/09 cycle #5 without Neulasta who presents to ED following a fall at home with associated fever of 102, chills and weakness. In the ED,
patient was not febrile but was hypotensive with systolic BP as low as the 50s. He was given IV fluids, started on pressors and broad-spectrum antibiotics and admitted to the ICU for septic shock. He was started on stress dose hydrocortisone. He
is also noted to have a significant leukocytosis with WBC count = 22,000 yesterday, increased to 51,000 this a.m. Neutrophil percentage 90%. There is also concerned about a possible endoleak of a recent AAA endovascular repair based on CT
findings. Vascular surgery is aware.
Past-Medical/Surgical History
PMH:
Metastatic Prostate Cancer
AAA s/p EVAR
PSH:
Appendectomy
Cholecystectomy
Right Inguinal Hernia Repair
Abdominal EVAR
R ACW Port Placement
Social History
Tobacco: Former Smoker (Quit in 1986. Approx 20 pack years total use.)
Alcohol: Occasional
Drug: None
Family History
Family History: Other (Longevity )
Patient Medication
�Medication �Instructions �Recorded �Confirmed �Last Taken �Type
aspirin 81 mg tablet,delayed 81 mg PO HS Blood Clot 08/22/23 12/10/23 12/09/23 History
release Prevention/Tx
atorvastatin 20 mg tablet (Lipitor) 20 mg PO HS High Cholesterol 08/22/23 12/10/23 12/09/23 History
relugolix 120 mg tablet (Orgovyx) 120 mg PO DAILY@1000 prostate 08/22/23 12/10/23 12/10/23 History
cancer
tamsulosin 0.4 mg capsule (Flomax) 0.4 mg PO DAILY Urinary Issue 08/22/23 12/10/23 12/10/23 History
darolutamide 300 mg tablet (Nubeqa) 600 mg PO BID 09/12/23 12/10/23 12/10/23 History
lidocaine-prilocaine 2.5 %-2.5 % 1 applic topical DAILYPRN PRN 12/10/23 12/10/23 Unknown History
topical cream prior to port access
prednisone 5 mg tablet 5 mg PO BID 12/10/23 12/10/23 12/10/23 History
Active Medications
Generic Name Dose Route Start Last Admin
Trade Name Freq PRN Reason Stop Dose Admin
Acetaminophen 650 mg 12/11/23 00:38
Acetaminophen 325 Mg Tablet PO 01/08/24 00:37
Q4HPRN PRN
Mild Pain / Temp > 101
Hydrocortisone Sodium Succinate 50 mg 12/11/23 00:38 12/11/23 01:23
Hydrocortisone Sodium Succinate 100 Mg/2 Ml Vial IV 01/08/24 00:37 50 mg
Q8 ONDINA Administration
Norepinephrine Bitartrate 4 mg in 250 mls @ 0 mls/hr 12/11/23 00:38 12/11/23 05:40
Levophed IV 250 mls
PER PROTOCOL ONDINA Administration
Protocol
Per Protocol
Piperacillin Sod/Tazobactam Sod 3.375 gram in 50 mls @ 100 mls/hr 12/11/23 04:00 12/11/23 02:51
Zosyn IV 50 mls
Q6H ONDINA Administration
Lactated Ringer's 1,000 mls @ 150 mls/hr 12/11/23 00:38 12/11/23 01:20
Lr IV 1,000 mls
.Q6H40M ONDINA Administration
Magnesium Sulfate 2 gram in 50 mls @ 25 mls/hr 12/11/23 07:23
Magnesium Sulfate IV 12/11/23 09:22
NOW STA
Vancomycin HCl 1 gram in 200 mls @ 200 mls/hr 12/12/23 06:00
Vancocin IV
DAILY@0600 ONDINA
Protocol
Vancomycin HCl 100 mls @ 100 mls/hr 12/11/23 16:00
Vancocin Hcl 500 Mg IV 12/11/23 16:59
ONCE@1600 ONE
Pantoprazole Sodium 40 mg 12/11/23 08:00
Pantoprazole Sodium 40 Mg/10 Ml Vial IV 01/08/24 07:59
DAILY ONDINA
Sodium Chloride 0 flush 12/11/23 02:00
Sodium Chloride 0.9% (Flush) Syringe IV 01/08/24 01:59
PER PROTOCOL ONDINA
Sodium Chloride 10 ml 12/11/23 08:00
Sodium Chloride 0.9% (Preservative Free) 10 Ml Vial IV 01/08/24 07:59
DAILY ONDINA
Physical Exam
-
General: Comfortable; Negative Respiratory Distress or Appears in Distress
HEENT: Negative Jaundice
Cardiology: S1 and S2
Pulmonary: Clear
GI: Soft
Extremities: No C/C/E
Labs
Lab Results
WBC 51.0 10^3/uL (4.8-10.8) H* 12/11/23 05:00
RBC 3.42 10^6/uL (4.70-6.10) L 12/11/23 05:00
Hgb 10.7 g/dL (13.0-18.0) L 12/11/23 05:00
Hct 31.7 % (39.0-52.0) L 12/11/23 05:00
MCV 92.7 fL (80.0-94.0) 12/11/23 05:00
MCH 31.3 pg (27.0-31.0) H 12/11/23 05:00
MCHC 33.8 g/dL (33.0-37.0) 12/11/23 05:00
RDW 15.6 % (11.5-14.5) H 12/11/23 05:00
Plt Count 143 10^3/uL (130-400) 12/11/23 05:00
MPV 9.4 fL (7.4-10.4) 12/11/23 05:00
Abs Immat Gran (auto) 0.2 10^3/uL (0-0.05) H 12/10/23 21:22
Absolute Neuts (auto) 20.0 10^3/uL (1.4-6.5) H 12/10/23 21:22
Absolute Lymphs (auto) 0.8 10^3/uL (1.2-3.4) L 12/10/23 21:22
Absolute Monos (auto) 1.1 10^3/uL (0.1-0.6) H 12/10/23 21:22
Absolute Eos (auto) 0.0 10^3/uL (0-0.7) 12/10/23 21:22
Absolute Basos (auto) 0.1 10^3/uL (0-0.2) 12/10/23 21:22
Immature Gran % 1.1 % (0-0.5) H 12/10/23 21:
Neutrophils % 90.2 % (42.2-75.2) H 12/10/23 21:
Lymphocytes % 3.6 % (20.5-51.1) L 12/10/23 21:
Monocytes % 4.8 % (1.7-9.3) 12/10/23 21:
Eosinophils % 0.0 % (0-6) 12/10/23 21:
Basophils % 0.3 % (0-2) 12/10/23 21:
Creatinine 1.1 mg/dL (0.7-1.3) 12/11/23 05:00
Vital Signs
Vital Signs
Temp Pulse Resp BP Pulse Ox
97.8 F 76 17 110/72 97
12/11/23 07:49 12/11/23 06:30 12/11/23 06:30 12/11/23 06:30 12/11/23 06:30
--- NOTE | 2023-12-11 08:30 | PTCARENOTE ---
Assumed care of pt at 0715 following shift report. Pt awake and resting quietly in bed, no complaints. Levophed gtt infusing at 6 mcg/min and LR infusing at 150ml/hr via Rt SC port. Physical assessment completed as documented. Comfort care and
hygiene provided. Call palafox w/in pt reach. Safe environment maintained.
[2023-12-11] MEDS: MAGNESIUM SULFATE 50 IV (08:38)
[2023-12-11] MEDS: PROTONIX IV 40 MG IV (08:39)
[2023-12-11] MEDS: NSS (PRESERVATIVE FREE) 10 ML IV (08:40)
--- NOTE | 2023-12-11 08:52 | CM ---
Patient seen at bedside with physician, and patient . Patient in ICU. Patient confirmed that they live in a 2 story home with no DME at home Patient was on the verge of 'starting to run' and had many questions. Physician answered all questions.
Patient PCP is Dr. Hicks and he uses [facility] for pharmacy needs in [place]. Patient spouse will bring in POA document. CM will continue to follow for discharge planning needs.
Plan; Home with VN vs home with no needs.
--- NOTE | 2023-12-11 09:07 | W.PN.HOSP.TC ---
Today's Communication/Plan
-
cont pressor-wean to off
cont O2--wean to off
renew drips
cont stress dose steroids
await vascular input
consult ID
cont vanco/zosyn
await cultures
Assessment / Plan
Assessment / Plan
pt is a 78 year old male
Septic Shock with lactic acidosis--just received chemo 12/09 without GCSF--also immunocompromised--must treat for infection with fever and 51K WBC count although no obvious etiology (urine culture never ordered)--cont IVF, pressors (wean to off),
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
acute hypoxemic resp insufficiency--CXR clear--possibly due to sepsis--wean to off
Metastatic Prostate Cancer--s/p chemo with taxotere 12/09--no G-CSF--hold immunotherapy too--no further chemo--apprec onc
AAA s/p EVAR with endoleak by CT scan--await vascular input--consented for blood if needed
Anemia presumed of chronic disease with chemo/cancer--although with endoleak cannot rule out hypotension and anemia due to blood loss--consented for blood--HGB Friday 12/08 was 12.7 now down to 10.7--trend HGB--may need transfusion- Heme test stools.
Iron studies. etc.
hypomagnesemia/hypokalemia--replete
HLD -- lipitor as able
DVT Prophylaxis: SCDs
Code Status: DNR
Total Critical Care Time 40 minutes. I was immediately available to the patient and staff. I personally examined, reviewed labs, diagnostic images/reports, interpretations, treatment plans, discussed patient care with other providers and family
or caregivers (if patient is unable to make decisions), entered orders as appropriate and documented the medical record.
Anticipated Discharge: > 48 hours
Subjective/Interval History
-
Date of Service: December 11, 2023
pt looks better in person than on paper
no c/o
Objective Data
-
Labs:
Laboratory Results
12/10/23 12/11/23 12/11/23
21:22 01:02 05:00
WBC 22.2 H 51.0 H*
Hgb 10.6 L 10.7 L
Hct 31.2 L 31.7 L
Plt Count 125 L D 143
PT 17.8 H
INR 1.48
APTT 27.7
Sodium 139 140
Potassium 3.1 L D 3.7
Chloride 106 110 H
Carbon Dioxide 22 18 L
BUN 20 18
Creatinine 1.0 1.1
Glucose 105 H 134 H
Calcium 7.7 L D 7.7 L
Total Bilirubin 0.7 0.6
AST 67 H 72 H
ALT 32 36
Alkaline Phosphatase 59 53
Vital Signs:
max temp for 24 hours
12/10/23
23:27
Temp 99.3 F
Vital Signs
Temp Pulse Resp BP Pulse Ox
97.8 F 76 17 110/72 97
12/11/23 07:49 12/11/23 06:30 12/11/23 06:30 12/11/23 06:30 12/11/23 06:30
I&O
12/10/23 12/11/23 12/12/23
06:59 06:59 06:59
Intake Total 1295.0 / 1295.0
Output Total 975 / 975 150 / 150
Balance 320.0 / 320.0 -150 / -150
Review of Systems
-
All other systems: Reviewed and negative
Physical Exam
-
General: Well Developed, Well Nourished and No Apparent Distress
HEENT: Normocephalic, Atraumatic and Oxygen
Respiratory: Clear to Auscultation
Cardiac: Regular Rhythm and S1/S2; Negative Murmur
GI: Soft, Nontender, Nondistended and Normal Bowel Sounds
Musculoskeletal: No Clubbing, No Cyanosis and No Edema
Neuro: Awake and Alert
[2023-12-11 10:36] LABS: Hematocrit 31.4 % (39.0-52.0); Hemoglobin 10.8 g/dL (13.0-18.0)
[2023-12-11 10:45] LABS: Lactic Acid 2.3 mmol/L (0.7-2.0)
[2023-12-11 10:47] LABS: Urine Albumin Negative (Neg - Trace); Urine Bilirubin Negative (Negative); Urine Character Clear (Clear); Urine Color Yellow; Urine Glucose Negative (Negative); Urine Ketone Negative (Negative); Urine Leukocyte Negative (Negative); Urine Nitrite Negative (Negative); Urine Occult Blood Negative (Negative); Urine Urobilinogen Negative (Neg - 1+)
--- NOTE | 2023-12-11 10:47 | W.PN.UPDATE ---
Update Note
Progress Note Update
Seen and examined with PAU Fuchs and PAU Gomez - full consultation to follow. 78yo male s/p EVAR (Terumo) with left femoral cut-down 09/24 (Siri). Now receiving chemotherapy for prostate CA. Completed last chemo treatment yesterday. Developed
chills/light-headedness and fever. Took tylenol, but got worse, so came to ER. Admission for presumptive post chemo sepsis. Part of w/u included CT a/p. Noted EVAR with endoleak. Asked to eval. Patient without any c/o abd/back pain. Notes all
symptoms from admission time now resolved. Feels good.
Awake/alert. NAD. Abd soft, ND, NT. Groins flat b/l. L groin prior inc healed. Feet warm, palp b/l pedal pulses.
CT scan reviewed. Well positioned infrarenal endograft. No evidence type 1/3 endoleaks. Sac size stable compared to recent prior CT dated 10/07/23. (see 1st set images below with left panel depicting current scan, and right panel prior scan).
There is a type 2 endoleak likely from lumbars that was not seen on prior scan (see second image below).
Plan/ s/p EVAR, type 2 endoleak
-sac size stable - cont surveillance f/u. F/u w Siri in office 6mos with repeat CTA.
-no evidence graft infection to explain admission symptoms.
-will sign off , please call w questions.
--- NOTE | 2023-12-11 11:05 | CON.VAS ---
Consultation
Consultation Request
Performing Provider: Edi
Reason for Consultation: Type II endoleak
Medical History
-
Chief Complaint: Chills, lightheaded, fever
History of Present Illness:
78 year old male s/p EVAR (Terumo) with left femoral cut-down 09/24 (Dr Horner). Now receiving chemotherapy for prostate CA. Completed last chemo treatment yesterday. Developed chills/light-headedness and fever. Pt took Tylenol with no relief
which led to his presentation to the ER. Admission for presumptive post chemo sepsis. Part of work up included CT. Noted EVAR with endoleak. Asked to evaluate. Patient without any c/o abd/back pain. Notes all symptoms from admission time now
resolved. Feels good.
Awake/alert. NAD. Abd soft, ND, NT. Groins flat b/l. L groin prior inc healed. Feet warm, palp b/l pedal pulses.
CT scan reviewed. Well positioned infrarenal endograft. No evidence type 1/3 endoleaks. Sac size stable compared to recent prior CT dated 10/07/23. (see 1st set images below with left panel depicting current scan, and right panel prior scan).
There is a type 2 endoleak likely from lumbars that was not seen on prior scan (see second image below).
Past Medical History
Past Medical History: Cancer (Metastatic prostate ) and Other (AAA s/p EVAR)
Past Surgical History: Appendectomy, Cholecystectomy and Other (Right Inguinal Hernia Repair, EVAR, R ACW Port Placement)
Social History
Tobacco: Former Smoker
Alcohol: Occasional
Drug: None
Family History
Family History: Reviewed & Not Pertinent
Allergies / Home Medications
Allergy/AdvReac Type Severity Reaction Status Date / Time
No Known Allergies Allergy Verified 12/10/23 21:10
�Medication �Instructions �Recorded �Confirmed �Type
aspirin 81 mg tablet,delayed 81 mg PO HS Blood Clot 08/22/23 12/10/23 History
release Prevention/Tx
atorvastatin 20 mg tablet (Lipitor) 20 mg PO HS High Cholesterol 08/22/23 12/10/23 History
relugolix 120 mg tablet (Orgovyx) 120 mg PO DAILY@1000 prostate 08/22/23 12/10/23 History
cancer
tamsulosin 0.4 mg capsule (Flomax) 0.4 mg PO DAILY Urinary Issue 08/22/23 12/10/23 History
darolutamide 300 mg tablet (Nubeqa) 600 mg PO BID PROSTATE CANCER 09/12/23 12/10/23 History
lidocaine-prilocaine 2.5 %-2.5 % 1 applic topical DAILYPRN PRN 12/10/23 12/10/23 History
topical cream prior to port access
prednisone 5 mg tablet 5 mg PO BID INFLAMMATION 12/10/23 12/10/23 History
Physical Exam
Vital Signs
Temp Pulse Resp BP Pulse Ox
97.8 F 73 25 91/67 94
12/11/23 07:49 12/11/23 10:30 12/11/23 10:30 12/11/23 10:30 12/11/23 10:30
Lab Results
12/11/23 05:00
Troponin I 0.019 ng/ml 12/10/23 21:22
Physical Exam
General: No Apparent Distress
HEENT: Normocephalic and Atraumatic
Respiratory: Non Labored Respirations
Cardiac: Negative JVD
GI: Soft, Non Tender and Non Distended
Musculoskeletal: No Clubbing and No Cyanosis
Skin: Warm
Neuro: Awake, Alert and Oriented
Psych: Calm
Assessment / Plan
-
Plan/ s/p EVAR, type 2 endoleak
-sac size stable - cont surveillance f/u. F/u w Siri in office 6mos with repeat CTA.
-no evidence graft infection to explain admission symptoms.
-will sign off , please call w questions.
Data Reviewed
-
CT Scan: Discussed with Patient
--- NOTE | 2023-12-11 11:53 | CON.INTV ---
Consultation
Consultation Request
Date/Time Consultation Requested: 12/11/2023
Date/Time Consultation Performed: 12/11/2023
Requesting Provider: Dr. Gold
Performing Provider: Dr. Cheikh Gonzáles
Reason for Consultation: Septic shock
Medical History
-
History of Present Illness:
78-year-old male with history of prostate cancer , with known abdominal aortic aneurysm infrarenal 7.0 cm otherwise healthy. Patient underwent repair of his abdominal aortic aneurysm, EVAR. 09/2023.
Currently on cancer chemotherapy, comes to the emergency room complaining of fevers, chills and weakness. He has completed about 5 rounds of chemotherapy most recently on 12/10/2023.
Usually after every cycle of chemotherapy he feels weak and tired.
Denies any diarrhea, abdominal pain, burning with urination, cough, phlegm production or shortness of breath.
Found to be hypotensive with systolic blood pressure in the 50s. Not responsive to IV fluids.
Started on vasopressors and transferred to the critical care unit for further evaluation.
This morning he feels better.
Remains on 4 mics of Levophed.
So far no signs of infection.
Afebrile since last night.
Leukocytosis of 50,000
.
PMH: Hypertension, hyperlipidemia history of metastatic prostate cancer, tubular colon polyp, familial Mediterranean fever. History of appendectomy 1954, cholecystectomy 1992, right inguinal hernia repair 2013
Past Medical History
Past Medical History: None (See above)
Past Surgical History: None (See above)
Social History
Tobacco: Former Smoker ([id number], quit 1983)
Alcohol: Occasional
Drug: None
Personal:
Living: With Family
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
Family History
Family History: Reviewed & Not Pertinent (Parents , 2 sisters healthy. No children. Both parents in the ninth decade)
Allergies / Home Medications
Allergies
Allergy/AdvReac Type Severity Reaction Status Date / Time
No Known Allergies Allergy Verified 12/10/23 21:10
Home Medications
�Medication �Instructions �Recorded �Confirmed �Last Taken �Type
aspirin 81 mg tablet,delayed 81 mg PO HS Blood Clot 08/22/23 12/10/23 12/09/23 History
release Prevention/Tx
atorvastatin 20 mg tablet (Lipitor) 20 mg PO HS High Cholesterol 08/22/23 12/10/23 12/09/23 History
relugolix 120 mg tablet (Orgovyx) 120 mg PO DAILY@1000 prostate 08/22/23 12/10/23 12/10/23 History
cancer
tamsulosin 0.4 mg capsule (Flomax) 0.4 mg PO DAILY Urinary Issue 08/22/23 12/10/23 12/10/23 History
darolutamide 300 mg tablet (Nubeqa) 600 mg PO BID PROSTATE CANCER 09/12/23 12/10/23 12/10/23 History
lidocaine-prilocaine 2.5 %-2.5 % 1 applic topical DAILYPRN PRN 12/10/23 12/10/23 Unknown History
topical cream prior to port access
prednisone 5 mg tablet 5 mg PO BID INFLAMMATION 12/10/23 12/10/23 12/10/23 History
Review of Systems
-
History Source: Patient
All other systems: Negative unless noted
Vitals / Labs / Diagnostic Testing
Vital Signs
Temp Pulse Resp BP Pulse Ox
97.8 F 73 25 91/67 94
12/11/23 07:49 12/11/23 10:30 12/11/23 10:30 12/11/23 10:30 12/11/23 10:30
Lab Data
12/11/23 05:00
Laboratory Results
12/11/23
01:02
PT 17.8 H
INR 1.48
APTT 27.7
Microbiology
12/10/23 22:13 Nasal Swab Influenza Types A & B (ZACHERY) - Final
Negative for Influenza A & B, NAAT
Negative results must be combined with clinical observations
and patient history.
Nucleic Acid Amplification test (NAAT)performed on the
[employer] NOW platform.
Diagnostic Testing:
Physical Exam
-
HEENT: Normocephalic
Cardiovascular: S1/S2
Respiratory: Clear and Non-Labored Respirations
GI: Soft and Non Distended
Neurology: Awake, Alert, Oriented, AO x 3 and No Motor Deficits
Skin: Warm
General: Comfortable
Assessment
-
78-year-old male with history of prostate cancer, recent AAA status post EVAR, on chemotherapy last around 12/10/2023. Admitted with fevers, chills and not feeling well. Found to be hypotensive, not responsive to IV fluids. Febrile with
leukocytosis. Requiring vasopressors. Consulted on 12/11/2023 for further eval
Septic shock-Unclear source
Leukocytosis/fevers/hypotension
Immunosuppression-on chemotherapy for prostate cancer last round on 12/10/2023.
AAA s/p EVAR
- CT A/P done in the ED this evening shows small area of nodular enhancement c/w endoleak - not previously seen.
Anemia-possibly due to chronic disease/chemotherapy induced
Conditions present prior admission:
Metastatic prostate cancer
AAA status post EVAR 09/2023
History of appendectomy
Cholecystectomy
Right inguinal hernia repair
Former smoker who quit in 1986-20 pack years
Assessment and plan:
Patient is critically ill, requiring vasopressors.
Septic shock suspected due to clinical presentation.
Blood cultures pending
Chest x-ray, reviewed showed no acute abnormalities
CT abdomen pelvis noted. No acute abnormalities.
UA pending
Continue broad-spectrum antibiotics
Infectious disease was consulted
Follow leukocytosis and fever curve
-
Continue Levophed to target mean arterial blood pressure 65 mmHg
Follow renal function
Lactic acid will be trended which was elevated on admission
-
AAA status post EVAR:
- CT A/P done in the ED this evening shows small area of nodular enhancement c/w endoleak - not previously seen.
Vascular surgery evaluated the patient and consider that this was not significant.
Will continue to follow with serial abdominal exams and H&H
Okay to start prophylaxis with Lovenox for DVT
-
Okay to advance diet
Head of the bed elevation
DNR status noted
-
Critical care statement: A total of 32 minutes of critical care time was provided for this patient today. This includes management of unstable vital signs, evaluation of the patient at bedside, reviewing the patient's pertinent medical records
including, radiographs, microbiology, laboratory evaluations and discussion with primary team, critical care nursing, and respiratory therapy.
--- NOTE | 2023-12-11 12:00 | PTCARENOTE ---
Tapering Levophed gtt as documented in work list intervention. Pt's in to visit this AM- updated by physicians- now gone home. Pt continues to rest quietly in bed, tolerating ordered diet. Using urinal to void. No changes from previous
assessment findings. No new complaints.
--- NOTE | 2023-12-11 14:06 | CON.ID ---
Consultation
-
Date/Time Consultation Requested: December 11, 2023 0917
Date/Time Consultation Performed: December 11, 2023 1400
Requesting Provider: Dr. Steff Gold
Performing Provider: Dr. Juanita Short
Reason for Consultation: Septic shock with 51K WBC
Chief Complaint / Past History
History of Present Illness
78-year-old male with history of AAA status post EVAR September 02, 2023, recent diagnosis of prostate cancer with osseous metastases, on chemotherapy q3 weeks, who presented to the hospital 12/09 after his fifth session of taxotere with significant
weakness, malaise, fever 102. He fell in the bathroom. In the ER, patient white count was 22.2, hypotensive 62/42 requiring pressor, elevated lactic acid. He was started on broad-spectrum antibiotic vancomycin and Zosyn. He was placed on stress
dose steroid. CAT scan of the abdomen pelvis showed new type 2 endoleak of the previous AAA endovascular repair. He was evaluated by Vascular who did not evidence of graft infection. Patient reports with the first 4 sessions of chemotherapy, he
would develop chills then fevers about 3 hours after chemotherapy. He would take Tylenol with resolution of the fever. However yesterday's chemo, he had fever up to 102 that did not respond to the Tylenol. He also became profoundly weak. No
other specific symptoms. No headache, sinus congestion, or sore throat. No cough or shortness of breath. No chest pain. No nausea vomiting abdominal pain or diarrhea. No urinary symptoms. No rash. No ill contacts. He feels better today.
Past History
Additional Past Medical History:
Prostate cancer with extensive osseous metastases diagnosed in July 2023
Abdominal aortic aneurysm status post percutaneous endovascular repair September 02, 2023
Hypertension
Dyslipidemia lipidemia
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
Appendectomy
Cholecystectomy
Right inguinal hernia repair
R chest wall port placed 09/2023
Allergy History:
No Known Allergies Allergy (Verified 12/10/23 21:10)
Medications Reviewed: Yes
Current Antibiotics:
Vancomycin d3
Zosyn d3
hydrocortisone 50mg q8
Social History
Tobacco: Former Smoker
Alcohol: None
Drug: None
Personal:
Living: With Family
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
Family History
Family History: Not Pertinent
Review of Systems
Review of Systems
General: Fever, Chills and Change in Appetite
HEENT: Negative Stiff Neck, Sinus Problems, Headache or Pharyngitis
Cardiovascular: Negative Chest Pain or Dyspnea
Respiratory: Negative Dyspnea, Cough, Hemoptysis or Sputum Production
Gasteroenterology: Negative Nausea, Vomiting or Diarrhea
Genital / Urological: Negative Dysuria or Flank Pain
Endocrine: Weakness
Musculoskeletal: Negative Joint Swelling or Arthralgias
Skin / Hair / Nails: Negative Rash
Neurological: Negative Headache or Dizziness
All systems: All other systems were reviewed and were negative
Vital Signs
Temp Pulse Resp BP Pulse Ox
98.2 F 78 25 97/62 96
12/11/23 12:00 12/11/23 13:04 12/11/23 13:04 12/11/23 13:04 12/11/23 13:04
Physical Exam
Physical Exam
Constitutional: No Acute Distress and Comfortable
Head: Other (No frontal or maxillary sinus tenderness.)
Eyes: No Conjunctival Hemorrhage and Sclera Anicteric
Pharynx: Benign
Oral: No Thrush
Cardiovascular: Regular Rate and S1/S2
Pulmonary: Clear
Gastrointestinal: Soft, Non Tender, Non Distended and Normal Bowel Sounds
Genito-Urinary: Negative Horner or CVA Tenderness
Extremities: Negative Edema
Musculoskeletal: Negative Joint Swelling or Joint Effusion
Neurological: AO x 3; Negative Meningeal Signs
Lines: Port (RCW no erythema)
Lab / Diagnostic Study Results
12/11/23 05:00
Abs Immat Gran (auto) 0.2 10^3/uL (0-0.05) H 12/10/23 21:22
Absolute Neuts (auto) 20.0 10^3/uL (1.4-6.5) H 12/10/23 21:22
Absolute Lymphs (auto) 0.8 10^3/uL (1.2-3.4) L 12/10/23 21:22
Absolute Monos (auto) 1.1 10^3/uL (0.1-0.6) H 12/10/23 21:22
Absolute Basos (auto) 0.1 10^3/uL (0-0.2) 12/10/23 21:22
Immature Gran % 1.1 % (0-0.5) H 12/10/23 21:22
Neutrophils % 90.2 % (42.2-75.2) H 12/10/23 21:22
Lymphocytes % 3.6 % (20.5-51.1) L 12/10/23 21:22
Monocytes % 4.8 % (1.7-9.3) 12/10/23 21:22
Eosinophils % 0.0 % (0-6) 12/10/23 21:22
Basophils % 0.3 % (0-2) 12/10/23 21:22
PT 17.8 Sec (11.4-14.6) H 12/11/23 01:02
INR 1.48 12/11/23 01:02
Lactic Acid 2.3 mmol/L (0.7-2.0) H 12/11/23 09:44
Microbiology Results
Micro:
12/11/23 09:44 Nasal Screen MRSA (PCR) - Final
Nose MRSA not detected - performed by PCR methodology.
12/10/23 22:13 Influenza Types A & B (ZACHERY) - Final
Nasal Swab Negative for Influenza A & B, NAAT
Negative results must be combined with clinical observations
and patient history.
Nucleic Acid Amplification test (NAAT)performed on the
[employer] NOW platform.
12/10/23 22:13 Blood Culture - Pending
Blood/Venous
12/10/23 22:13 Blood Culture - Pending
Blood/Venous
12/11/23 CT a/p: Status post endovascular repair of infrarenal abdominal aortic aneurysm with evidence for interval development of endoleak, likely type II as described.
12/10/23 CXR: No active cardiopulmonary disease.
Assessment / Plan
#shock on 1 pressor; presumed septic shock
# Leukemoid reaction WBC 51K
# Metastatic prostate ca s/p 5 cycles of chemo, last one 12/10/23.
- UA neg, CXR neg
-CT a/p type 2 endoleak, which is not a concern per Vascular
- Follow blood cx's x 2
- Continue Vanco/Zosyn for now pending blood cx's.
- Trend wbc.
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
Prostate cancer with extensive osseous metastases diagnosed in July 2023
Abdominal aortic aneurysm status post percutaneous endovascular repair September 02, 2023
Hypertension
Dyslipidemia
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
Appendectomy
Cholecystectomy
Right inguinal hernia repair
R chest wall port placed 09/2023
[2023-12-11 14:08] LABS: Lactic Acid 2.2 mmol/L (0.7-2.0)
--- NOTE | 2023-12-11 16:00 | PTCARENOTE ---
Pt continues to rest quietly, No changes from previous assessment findings. no new complaints received. Levophed at 2mcg/min w/ SBP in 90's.
[2023-12-11] MEDS: VANCOCIN HCL 500 MG 100 IV (16:45)
[2023-12-11] MEDS: LOVENOX 40 MG SC (17:48)
[2023-12-11 18:16] LABS: Hematocrit 28.5 % (39.0-52.0); Hemoglobin 9.9 g/dL (13.0-18.0)
[2023-12-11 18:46] LABS: Lactic Acid 1.2 mmol/L (0.7-2.0)
--- NOTE | 2023-12-11 20:35 | PTCARENOTE ---
report received, assessments per work list. patient alert and oriented, denies pain, nausea, monitor nsr. Levophed titration per work list to keep MAP>65. tolerating oral intake. right chest wall port patent, d/w pool cleaner WASH OPERATOR. fluid rate
decreased to 100ml/hr. call palafox in reach
[2023-12-11 22:15] LABS: Hemoglobin 9.6 g/dL (13.0-18.0)
[2023-12-12] VITALS (64 sets, daily range): BP systolic 78–139; BP diastolic 45–83; BMI 24.5
--- NOTE | 2023-12-12 00:04 | PTCARENOTE ---
reassessed. systolic 80's off levophed, map >65. reviewed plan with backwinder home economics extension worker. levophed orders adjusted to keep systolic>90. levophed resumed@2mcq
[2023-12-12] MEDS: ZOSYN 50 IV ×2 (03:56→09:53)
[2023-12-12] MEDS: LR 1000 IV (04:14)
--- NOTE | 2023-12-12 04:25 | PTCARENOTE ---
reassessed, patient slept only short periods. until now patient had refused interventions to assist with quiet environmnet. patient now allowed this hand sign writer to place monitor on Quiet alarm mode, warm blanket offered, ear plugs provided. bladder scan
per work list. levophed continues to keep systolic>90. labs sent. deferred am care as patient has not had adequate rest. call palafox in reach
[2023-12-12 04:41] LABS: Hematocrit 29.6 % (39.0-52.0); Hemoglobin 10.2 g/dL (13.0-18.0); Mean Corp Hgb Conc. 34.5 g/dL (33.0-37.0); Mean Corpuscular Hgb 32.6 pg (27.0-31.0); Mean Corpuscular Volume 94.6 fL (80.0-94.0); Red Blood Cell Count 3.13 10^6/uL (4.70-6.10); Red Cell Dist. Width 15.4 % (11.5-14.5); White Blood Cell Count 36.6 10^3/uL (4.8-10.8)
[2023-12-12 05:01] LABS: ALT (SGPT) 33 U/L (0-50); AST (SGOT) 48 U/L (17-59); Albumin 2.5 g/dl (3.5-5.0); Alkaline Phosphatase 64 U/L (38-126); Blood Urea Nitrogen 15 mg/dl (9-20); Calcium 7.9 mg/dl (8.4-10.2); Carbon Dioxide 24 mmol/L (22-30); Chloride 110 mmol/L (98-107); Estimated Creatinine Clearance 73 ml/min; Glucose 119 mg/dl (70-99); Magnesium 2.1 mg/dl (1.6-2.3); Potassium 3.3 mmol/L (3.5-5.1); Sodium 142 mmol/L (135-145); Total Bilirubin 0.4 mg/dl (0.2-1.3); Total Protein 4.8 g/dl (6.3-8.2); eGFR > 60.00
[2023-12-12] MEDS: VANCOCIN 200 IV (05:41)
[2023-12-12] MEDS: LEVOPHED 250 IV (05:41)
[2023-12-12 05:50] LABS: Platelet Count 94 10^3/uL (130-400)
[2023-12-12 05:51] LABS: Mean Platelet Volume 10.6 fL (7.4-10.4)
[2023-12-12] MEDS: KCL 40 MEQ PO (06:45)
[2023-12-12] MEDS: FLOMAX 0.4 MG PO (07:59)
[2023-12-12] MEDS: NSS (PRESERVATIVE FREE) 10 ML IV (08:00)
[2023-12-12] MEDS: PROTONIX IV 40 MG IV (08:00)
[2023-12-12] MEDS: SOLU-CORTEF 50 MG IV (08:01)
--- NOTE | 2023-12-12 10:31 | W.PN.ID1 ---
Date of Service
Date of Service: December 12, 2023
Today's Communication
DC abx's and observe.
Assessment / Plan
#shock, weaning off 1 pressor. Currently on IV steroid.
# Leukemoid reaction WBC 51K, trending down
# Metastatic prostate ca s/p 5 cycles of chemo, last one 12/10/23.
- No infectious etiology identified.
- Possible chemo-associated reaction.
- UA neg, CXR neg
-CT a/p type 2 endoleak, which is not a concern per Vascular
- blood cx's x 2 neg to date
- DC Vanco/Zosyn
- Follow wbc.
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
Prostate cancer with extensive osseous metastases diagnosed in July 2023
Abdominal aortic aneurysm status post percutaneous endovascular repair September 02, 2023
Hypertension
Dyslipidemia
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
Appendectomy
Cholecystectomy
Right inguinal hernia repair
R chest wall port placed 09/2023
Chief Complaint
-: Fever and Leukocytosis
Subjective / Review of Systems
Feels well today. No specific complaints.
Vital Signs / Physical Exam
Vital Signs
Vital Signs
Temp Pulse Resp BP Pulse Ox
98.2 F 54 29 102/68 92
12/12/23 07:42 12/12/23 10:15 12/12/23 10:15 12/12/23 10:00 12/12/23 10:21
Physical Exam
Constitutional: No Acute Distress and Comfortable
Eyes: No Conjunctival Hemorrhage and Sclera Anicteric
Pulmonary: Clear
Gastrointestinal: Soft and Non Tender
Extremities: Negative Edema
Neurological: AO x 3
Lines: Port (RCW no erythema)
Objective Data
Lab Data
Lab Results
12/12/23 03:52
12/12/23 03:52
PT 17.8 Sec (11.4-14.6) H 12/11/23 01:02
INR 1.48 12/11/23 01:02
APTT 27.7 Sec (23.4-35.0) 12/11/23 01:02
Estimated Creat Clear 73 ml/min 12/12/23 03:52
Lactic Acid Cancelled 12/11/23 21:30
Total Bilirubin 0.4 mg/dl (0.2-1.3) 12/12/23 03:52
AST 48 U/L (17-59) 12/12/23 03:52
ALT 33 U/L (0-50) 12/12/23 03:52
Alkaline Phosphatase 64 U/L (38-126) 12/12/23 03:52
Most recent labs reviewed.
Micro Results:
12/10/23 22:13 Blood Culture - Preliminary
Blood/Venous No Growth in 24 hours- Final report to follow
12/10/23 22:13 Blood Culture - Preliminary
Blood/Venous No Growth in 24 hours- Final report to follow
12/11/23 09:44 Nasal Screen MRSA (PCR) - Final
Nose MRSA not detected - performed by PCR methodology.
12/10/23 22:13 Influenza Types A & B (ZACHERY) - Final
Nasal Swab Negative for Influenza A & B, NAAT
Negative results must be combined with clinical observations
and patient history.
Nucleic Acid Amplification test (NAAT)performed on the
[employer] platform.
12/11/23 CT a/p: Status post endovascular repair of infrarenal abdominal aortic aneurysm with evidence for interval development of endoleak, likely type II as described.
12/10/23 CXR: No active cardiopulmonary disease.
--- NOTE | 2023-12-12 10:51 | W.PN.ONC ---
Today's Communication / Plan
-
Possible infectious management as per ID
Leukocytosis slightly improved
Blood cultures negative to date
Port without obvious evidence of infection
This was scheduled to be his fifth out of 6 cycles of chemotherapy. At this point I will probably be holding off on his 6 cycle and just continue current hormonal therapy which includes Orgovyx + darolutamide
Prednisone 5 mg PO BID is only being used as part of the chemotherapy protocol
Impression
Impression
Septic shock
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
Leukocytosis
High risk metastatic prostate cancer with extensive bone metastasis, [place] 4+5 = 9
Plan
Plan
Agree with broad-spectrum antibiotics (vancomycin + Zosyn), supportive care with pressors, stress dose steroids for treatment of septic shock.
Patient
Subjective/Objective
Subjective/Objective
Patient is conversant in no acute distress. He describes cyclical fevers with Taxotere occurring with each cycle very shortly after treatment.
Vital Signs:
Vital Signs
Temp Pulse Resp BP Pulse Ox
98.2 F 54 29 102/68 92
12/12/23 07:42 12/12/23 10:15 12/12/23 10:15 12/12/23 10:00 12/12/23 10:21
Physical exam unchanged
Lab Results:
Laboratory Data
WBC 36.6 10^3/uL (4.8-10.8) H 12/12/23 03:52
Hgb 10.2 g/dL (13.0-18.0) L 12/12/23 03:52
Plt Count 94 10^3/uL (130-400) L D 12/12/23 03:52
PT 17.8 Sec (11.4-14.6) H 12/11/23 01:02
INR 1.48 12/11/23 01:02
APTT 27.7 Sec (23.4-35.0) 12/11/23 01:02
eGFR > 60.00 12/12/23 03:52
--- NOTE | 2023-12-12 11:10 | PTCARENOTE ---
Complete assessment done and documented. Pt SB, BP 94/63. Pt currently on levophed at 1 mcg/min (3.8 ml/hr). Pt on R/A, lobes clear but decreased at bases. Pt ate breakfast without difficulty, and voiding yellow urine in urinal. Pt seen by erin MCGINNIS
d/c'd. Pt also seen by Dr Tineo from oncology and Dr Gonzáles ICU seat joiner chainstitch. Pt comfortable, all questions answered. 40 mg po potassium was given for K+ 3.3 this am.
--- NOTE | 2023-12-12 12:40 | W.PN.INTV ---
Today's Communication / Plan
Recommendations
Continue Levophed, wean off as able
Continue to follow cultures
Stop antibiotics and observe
Discontinue IV fluids
Advance diet as tolerated
Transfer to intermediate care unit
If transfers out, critical care team will sign off.
Assessment
-
78-year-old male with history of prostate cancer, recent AAA status post EVAR, on chemotherapy last around 12/10/2023. Admitted with fevers, chills and not feeling well. Found to be hypotensive, not responsive to IV fluids. Febrile with
leukocytosis. Requiring vasopressors. Consulted on 12/11/2023 for further eval
Septic shock-Unclear source
Leukocytosis/fevers/hypotension
Immunosuppression-on chemotherapy for prostate cancer last round on 12/10/2023.
AAA s/p EVAR
- CT A/P done in the ED this evening shows small area of nodular enhancement c/w endoleak - not previously seen.
Anemia-possibly due to chronic disease/chemotherapy induced
Conditions present prior admission:
Metastatic prostate cancer
AAA status post EVAR 09/2023
History of appendectomy
Cholecystectomy
Right inguinal hernia repair
Former smoker who quit in 1986-20 pack years
Assessment and plan:
Clinically slowly improving.
Afebrile
Leukocytosis better
Vasopressor requirement improved
-
Septic shock suspected due to clinical presentation.
All cultures so far pending
Alternatively shock and fever may have been related to chemotherapy infusion on 12/10/2023. Had similar episodes in the past but less severe.
Chest x-ray=showed no acute abnormalities
CT abdomen pelvis noted. No acute abnormalities.
UA p normal.
Antibiotics discontinued 12/12/2023 per infectious disease. Will observe for 24 hours.
Follow leukocytosis and fever curve
-
Continue Levophed to target mean arterial blood pressure 65 mmHg
Hopefully can wean off later.
Discontinue IV fluids once last bag terminated patient is tolerating diet. Does not appear dehydrated
Normal creatinine
Lactic acid has cleared
-
AAA status post EVAR:
- CT A/P done in the ED this evening shows small area of nodular enhancement c/w endoleak - not previously seen.
Vascular surgery evaluated the patient and consider that this was not significant.
Will continue to follow with serial abdominal exams and H&H
DVT prophylaxis okay per
-
Advance diet as tolerated
Head of the bed elevation
DNR status noted
-
Critical care statement: A total of 31minutes of critical care time was provided for this patient today. This includes management of unstable vital signs, evaluation of the patient at bedside, reviewing the patient's pertinent medical records
including, radiographs, microbiology, laboratory evaluations and discussion with primary team, critical care nursing, and respiratory therapy.
Subjective Dataa
Subjective Data
Date of Service:
Date of Service: December 12, 2023
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
Subjective:
Patient offers no new complaints.
Denies shortness of breath
Denies cough, wheezing or phlegm production.
Denies burning with urinary
Denies back pain. Tolerating food
Review of Systems
Neuro: Headache (n) and Dizziness (n)
Objective Data
Data Reviewed
Vital Signs / I&O / Oxygen:
Vital Signs
Temp Pulse Resp BP Pulse Ox
98.2 F 67 30 112/67 94
12/12/23 07:42 12/12/23 12:00 12/12/23 12:00 12/12/23 12:00 12/12/23 12:00
Intake and Output
12/11/23 12/12/23 12/13/23
06:59 06:59 06:59
Intake Total 1295.0 / 1467.5 4330.1 / 4433.9 962.8 / 962.8
Output Total 975 / 975 1845 / 1845 500 / 500
Balance 320.0 / 492.5 2485.1 / 2588.9 462.8 / 462.8
SaO2 94
Nasal Cannula flow liters per 2
minute
Physical Exam
General: Comfortable
HEENT: Normocephalic
Cardiovascular: S1-S2
Respiratory: Clear and Non-Labored Respirations
GI: Soft and Non Distended
Neurology: Awake, Alert, AO x 3 and No Motor Deficits
Skin: Warm
Labs/Micro/Reports
Lab Data
12/12/23 03:52
12/12/23 03:52
Microbiology
12/10/23 22:13 Blood/Venous Blood Culture - Preliminary
No Growth in 24 hours- Final report to follow
12/10/23 22:13 Blood/Venous Blood Culture - Preliminary
No Growth in 24 hours- Final report to follow
12/11/23 09:44 Nose Nasal Screen MRSA (PCR) - Final
MRSA not detected - performed by PCR methodology.
12/10/23 22:13 Nasal Swab Influenza Types A & B (ZACHERY) - Final
Negative for Influenza A & B, NAAT
Negative results must be combined with clinical observations
and patient history.
Nucleic Acid Amplification test (NAAT)performed on the
[employer] platform.
--- NOTE | 2023-12-12 15:23 | W.PN.HOSP.TC ---
Today's Communication/Plan
-
possible downgrade out of ICU if can remain off pressors
observe off ABX
Assessment / Plan
Assessment / Plan
pt is a 78 year old male
Septic Shock with lactic acidosis--resolved--just received chemo 12/09 without GCSF--also immunocompromised--must treat for infection with fever and 51K WBC count although no obvious etiology and cultures negative--apprec ID and heme--stop
vanco/zosyn and observe-wean pressors to off, wean stress dose steroids
acute hypoxemic resp insufficiency--CXR clear--possibly due to sepsis--off O2
Metastatic Prostate Cancer--s/p chemo with taxotere 12/09--no G-CSF--hold immunotherapy too--no further chemo--apprec onc
AAA s/p EVAR with endoleak by CT scan-- vascular not excited and HGB stable--consented for blood if needed
Anemia presumed of chronic disease with chemo/cancer--although with endoleak could not initially rule out hypotension and anemia due to blood loss--ruled out---HGB stable around 10 --may need transfusion-
hypomagnesemia/hypokalemia--replete
HLD -- lipitor as able
DVT Prophylaxis: SCDs
Code Status: DNR
Total Critical Care Time 30 minutes. I was immediately available to the patient and staff. I personally examined, reviewed labs, diagnostic images/reports, interpretations, treatment plans, discussed patient care with other providers and family
or caregivers (if patient is unable to make decisions), entered orders as appropriate and documented the medical record.
Anticipated Discharge: > 48 hours
Subjective/Interval History
-
Date of Service: December 12, 2023
pt feels fine
Objective Data
-
Labs:
Laboratory Results
12/12/23
03:52
WBC 36.6 H
Hgb 10.2 L
Hct 29.6 L
Plt Count 94 L D
Sodium 142
Potassium 3.3 L
Chloride 110 H
Carbon Dioxide 24
BUN 15
Creatinine 0.8
Glucose 119 H
Calcium 7.9 L
Total Bilirubin 0.4
AST 48
ALT 33
Alkaline Phosphatase 64
Vital Signs:
max temp for 24 hours
12/12/23
11:09
Temp 98.8 F
Vital Signs
Temp Pulse Resp BP Pulse Ox
98.8 F 67 30 112/67 94
12/12/23 11:09 12/12/23 12:00 12/12/23 12:00 12/12/23 12:00 12/12/23 12:00
I&O
12/11/23 12/12/23 12/13/23
06:59 06:59 06:59
Intake Total 1295.0 / 1467.5 4330.1 / 4433.9 962.8 / 962.8
Output Total 975 / 975 1845 / 1845 500 / 500
Balance 320.0 / 492.5 2485.1 / 2588.9 462.8 / 462.8
Review of Systems
-
All other systems: Reviewed and negative
Physical Exam
-
General: Well Developed, Well Nourished and No Apparent Distress
HEENT: Normocephalic and Atraumatic; Negative Oxygen
Respiratory: Clear to Auscultation; Negative Wheezes or Rhonchi
Cardiac: Regular Rhythm and S1/S2; Negative Murmur
GI: Soft, Nontender, Nondistended and Normal Bowel Sounds
Musculoskeletal: No Clubbing, No Cyanosis and No Edema
Neuro: Awake and Alert
Psych: Calm
--- NOTE | 2023-12-12 16:20 | PTCARENOTE ---
Pt OOB to chair with rolling walker and 1 person assist earlier today. Tolerating very well, and remains OOB for 4+ hrs now. Levophed drip remains off.
--- NOTE | 2023-12-12 16:58 | W.PN.UPDATE ---
Update Note
Progress Note Update
Levophed has been weaned off.
Patient comfortably sitting on a chair.
He has been downgraded.
There is no pulmonary issues
Critical care team will sign off.
Please call pulmonary if any respiratory issues arise
--- NOTE | 2023-12-12 17:18 | CM ---
Patient seen at bedside with physician. Patient feeling better, remaining in ICU at this time. Plan is for home with VN vs home with no needs.
Plan; home with VN vs home with no needs.
[2023-12-12] MEDS: LOVENOX 40 MG SC (17:39)
--- NOTE | 2023-12-12 18:25 | PTCARENOTE ---
Pt would like to stay OOB in chair, HR and BP remaining stable. Pt cleared to go to IMU bed when available.
[2023-12-12] MEDS: LR IV (19:13)
[2023-12-12] MEDS: DELTASONE 5 MG PO (19:44)
--- NOTE | 2023-12-12 20:39 | PTCARENOTE ---
Pt received sitting OOB in chair. No complaints offered. Assessment as charted.
[2023-12-13] VITALS (13 sets, daily range): BP systolic 105–136; BP diastolic 66–102; PULSE 95–145; O2SAT 97; BMI 23.9
[2023-12-13] MEDS: FLUSH (NSS) 2 FLUSH IV (04:31)
[2023-12-13 05:02] LABS: Hematocrit 29.8 % (39.0-52.0); Hemoglobin 10.2 g/dL (13.0-18.0); Mean Corp Hgb Conc. 34.2 g/dL (33.0-37.0); Mean Corpuscular Volume 90.6 fL (80.0-94.0); Platelet Count 95 10^3/uL (130-400); Red Blood Cell Count 3.29 10^6/uL (4.70-6.10); Red Cell Dist. Width 14.9 % (11.5-14.5); White Blood Cell Count 12.7 10^3/uL (4.8-10.8)
[2023-12-13 05:10] LABS: Blood Urea Nitrogen 16 mg/dl (9-20); Carbon Dioxide 24 mmol/L (22-30); Chloride 107 mmol/L (98-107); Estimated Creatinine Clearance 73 ml/min; Glucose 94 mg/dl (70-99); Magnesium 1.7 mg/dl (1.6-2.3); Potassium 3.8 mmol/L (3.5-5.1); Sodium 141 mmol/L (135-145); eGFR > 60.00
--- NOTE | 2023-12-13 05:17 | PTCARENOTE ---
Slept at intervals. No change in assessment.
--- NOTE | 2023-12-13 05:57 | PTCARENOTE ---
Pt transferred to IMU via bed with belongings.
--- NOTE | 2023-12-13 05:59 | PTCARENOTE ---
Pt received from previous RN. Pt AAOx3. Pt making needs known. NSR on monitor. HR 75. + pedal pulses. SCDs in use. RR even and unlabored. 95% on RA. Pt using the urinal to void. Skin warm and intact. VSS. Call light in reach. Pt denies further needs
at this time.
[2023-12-13] MEDS: PROTONIX IV 40 MG IV (08:51)
[2023-12-13] MEDS: FLOMAX 0.4 MG PO (08:51)
[2023-12-13] MEDS: DELTASONE 5 MG PO ×2 (08:51→19:52)
[2023-12-13] MEDS: NSS (PRESERVATIVE FREE) 10 ML IV (08:51)
--- NOTE | 2023-12-13 09:30 | W.PN.ONC2 ---
Today's Communication / Plan
-
OP followup will be arranged upon discharge
Impression
Impression
Septic shock
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
Leukocytosis
High risk metastatic prostate cancer with extensive bone metastasis, [place] 4+5 = 9
Plan
Plan
antibiotics, supportive care with pressors, stress dose steroids for treatment of septic shock per ID and primary service
follow cultures
Dr. Tineo will likely hold off on cycle 6 of chemo with plan for continued Orgovyx & darolutamide in OP follow up
Subjective/Objective
Chief Complaint
no new complaint
Subjective
afebrile, 2L NC, no hypoxia
Vital Signs:
Vital Signs
Temp Pulse Resp BP Pulse Ox
98.3 F 81 27 110/77 92
12/13/23 07:05 12/13/23 04:00 12/13/23 04:00 12/13/23 04:00 12/13/23 02:00
Lab Results:
Laboratory Data
WBC 12.7 10^3/uL (4.8-10.8) H 12/13/23 04:30
Hgb 10.2 g/dL (13.0-18.0) L 12/13/23 04:30
Plt Count 95 10^3/uL (130-400) L 12/13/23 04:30
PT 17.8 Sec (11.4-14.6) H 12/11/23 01:02
INR 1.48 12/11/23 01:02
APTT 27.7 Sec (23.4-35.0) 12/11/23 01:02
eGFR > 60.00 12/13/23 04:30
Physical Exam
General: Comfortable; Negative Respiratory Distress or Appears in Distress
HEENT: Negative Jaundice
Cardiology: S1 and S2
Pulmonary: Clear
GI: Soft
Extremities: No C/C/E
Review of Systems
Review of Systems
ROS notable for subjective, otherwise negative
--- NOTE | 2023-12-13 09:36 | W.PN.ID1 ---
Date of Service
Date of Service: December 13, 2023
Today's Communication
ID will sign off.
Assessment / Plan
#s/p shock
# Leukemoid reaction WBC 51K, continues to improve
# Metastatic prostate ca s/p 5 cycles of chemo, last one 12/10/23.
- likely chemo-related reactions.
- No infectious etiology identified.
- chemo-associated reaction.
- UA neg, CXR neg
-CT a/p type 2 endoleak, which is not a concern per Vascular
- blood cx's x 2 neg to date
- Observe off abx.
ID will sign off.
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
Prostate cancer with extensive osseous metastases diagnosed in July 2023
Abdominal aortic aneurysm status post percutaneous endovascular repair September 02, 2023
Hypertension
Dyslipidemia
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
Appendectomy
Cholecystectomy
Right inguinal hernia repair
R chest wall port placed 09/2023
Chief Complaint
-: Fever and Leukocytosis
Subjective / Review of Systems
Feels well. Hoping to go home soon.
Vital Signs / Physical Exam
Vital Signs
Vital Signs
Temp Pulse Resp BP Pulse Ox
98.3 F 81 27 110/77 92
12/13/23 07:05 12/13/23 04:00 12/13/23 04:00 12/13/23 04:00 12/13/23 02:00
Physical Exam
Constitutional: No Acute Distress
Pulmonary: Clear
Gastrointestinal: Soft, Non Tender and Non Distended
Extremities: Negative Edema
Neurological: AO x 3
Lines: Port (intact)
Objective Data
Lab Data
Lab Results
12/13/23 04:30
12/13/23 04:30
PT 17.8 Sec (11.4-14.6) H 12/11/23 01:02
INR 1.48 12/11/23 01:02
APTT 27.7 Sec (23.4-35.0) 12/11/23 01:02
Estimated Creat Clear 73 ml/min 12/13/23 04:30
Lactic Acid Cancelled 12/11/23 21:30
Total Bilirubin 0.4 mg/dl (0.2-1.3) 12/12/23 03:52
AST 48 U/L (17-59) 12/12/23 03:52
ALT 33 U/L (0-50) 12/12/23 03:52
Alkaline Phosphatase 64 U/L (38-126) 12/12/23 03:52
Most recent labs reviewed.
Micro Results:
12/10/23 22:13 Blood Culture - Preliminary
Blood/Venous No Growth in 48 hours- Final report to follow
12/10/23 22:13 Blood Culture - Preliminary
Blood/Venous No Growth in 48 hours- Final report to follow
12/11/23 09:44 Nasal Screen MRSA (PCR) - Final
Nose MRSA not detected - performed by PCR methodology.
12/10/23 22:13 Influenza Types A & B (ZACHERY) - Final
Nasal Swab Negative for Influenza A & B, NAAT
Negative results must be combined with clinical observations
and patient history.
Nucleic Acid Amplification test (NAAT)performed on the
[employer] platform.
12/11/23 CT a/p: Status post endovascular repair of infrarenal abdominal aortic aneurysm with evidence for interval development of endoleak, likely type II as described.
12/10/23 CXR: No active cardiopulmonary disease.
--- NOTE | 2023-12-13 10:46 | W.PN.HOSP.TC ---
Today's Communication/Plan
-
await PT/OT evals
Assessment / Plan
Assessment / Plan
pt is a 78 year old male
Septic Shock with lactic acidosis--resolved--just received chemo 12/09 without GCSF--also immunocompromised--must treat for infection with fever and 51K WBC count although no obvious etiology and cultures negative--apprec ID and heme--stop
vanco/zosyn and observe-wean pressors to off, wean stress dose steroids
acute hypoxemic resp insufficiency--CXR clear--possibly due to sepsis--off O2
Metastatic Prostate Cancer--s/p chemo with taxotere 12/09--no G-CSF--hold immunotherapy too--no further chemo--apprec onc
AAA s/p EVAR with endoleak by CT scan-- vascular not excited and HGB stable--consented for blood if needed
Anemia presumed of chronic disease with chemo/cancer--although with endoleak could not initially rule out hypotension and anemia due to blood loss--ruled out---HGB stable around 10 --may need transfusion-
hypomagnesemia/hypokalemia--replete
HLD -- lipitor as able
DVT Prophylaxis: SCDs
Code Status: DNR
PT/OT--possible d/c this afternoon
Anticipated Discharge: Today
Subjective/Interval History
-
Date of Service: December 13, 2023
pt off pressors, off ABX
Objective Data
-
Labs:
Laboratory Results
12/13/23
04:30
WBC 12.7 H
Hgb 10.2 L
Hct 29.8 L
Plt Count 95 L
Sodium 141
Potassium 3.8
Chloride 107
Carbon Dioxide 24
BUN 16
Creatinine 0.8
Glucose 94
Calcium 8.0 L
Vital Signs:
max temp for 24 hours
12/12/23
23:04
Temp 99.4 F
Vital Signs
Temp Pulse Resp BP Pulse Ox
98.3 F 81 27 110/77 92
12/13/23 07:05 12/13/23 04:00 12/13/23 04:00 12/13/23 04:00 12/13/23 02:00
I&O
12/12/23 12/13/23 12/14/23
06:59 06:59 06:59
Intake Total 4330.1 / 4433.9 1737.8 / 1737.8
Output Total 1845 / 1845 1900 / 190
Balance 2485.1 / 2588.9 -162.2 / -162.2
Review of Systems
-
All other systems: Reviewed and negative
Physical Exam
-
General: Well Developed, Well Nourished and No Apparent Distress
HEENT: Normocephalic and Atraumatic
Respiratory: Clear to Auscultation; Negative Wheezes or Rhonchi
Cardiac: Regular Rhythm; Negative S1/S2 or Murmur
GI: Soft, Nontender, Nondistended and Normal Bowel Sounds
Musculoskeletal: No Clubbing, No Cyanosis and No Edema
Neuro: Awake and Alert
Psych: Calm
--- NOTE | 2023-12-13 15:12 | PTCARENOTE ---
Assumed care of patient at beginning of this shift from previous RN. Ambulated to BR x1 assist without difficulty. Patient worked with PT/OT; per therapist, patient ambulated well but HR increased to 130s in ingram and 140s on steps. Dr Gold
updated via tiger text.
--- NOTE | 2023-12-13 17:07 | PTCARENOTE ---
Addendum entered by Shanda Liang RN 12/13/23 18:06:
IV Lopressor ordered and given. Patient updated.
Original Note:
Patient sitting up in chair eating dinner; HR to 140s. Patient asymptomatic. [place] text sent to Dr Gold with picture of telemetry strip. Await update.
[2023-12-13] MEDS: LOVENOX 40 MG SC (17:28)
[2023-12-13] MEDS: LOPRESSOR 5 MG IV ×2 (17:28→22:07)
[2023-12-14] VITALS: BP 113/63
[2023-12-14 02:00] VITALS: BP 81/49
[2023-12-14] MEDS: LOPRESSOR IV ×2 (02:05→05:28)
[2023-12-14 02:23] VITALS: BP 101/59
[2023-12-14 04:00] VITALS: BP 86/52
[2023-12-14 05:26] VITALS: BMI 22.5
[2023-12-14 06:00] VITALS: BP 113/68
--- NOTE | 2023-12-14 06:23 | PTCARENOTE ---
No acute events overnight. Lopressor held x2 for soft bps. Remained in nsr.
[2023-12-14 08:00] VITALS: BP 116/79
--- NOTE | 2023-12-14 08:36 | W.PN.HOSP.TC ---
Today's Communication/Plan
-
d/c
Assessment / Plan
Assessment / Plan
pt is a 78 year old male
Septic Shock with lactic acidosis--resolved--just received chemo 12/09 without GCSF--also immunocompromised-- 51K WBC on admission--WBC now normal--cultures neg--ABX off --apprec ID and heme-
acute hypoxemic resp insufficiency--CXR clear--possibly due to sepsis--off O2
Metastatic Prostate Cancer--s/p chemo with taxotere 12/09--no G-CSF--resume immunotherapy too--no further chemo--apprec onc
sinus tachycardia--unclear cause--IV lopressor started and last few doses held--will d/c with PRN lopressor
AAA s/p EVAR with endoleak by CT scan-- vascular not excited and HGB stable--consented for blood if needed
Anemia presumed of chronic disease with chemo/cancer--although with endoleak could not initially rule out hypotension and anemia due to blood loss--ruled out---HGB stable around 10
hypomagnesemia/hypokalemia--replete
HLD -- lipitor as able
DVT Prophylaxis: SCDs
Code Status: DNR
ok for d/c
Anticipated Discharge: Today
Subjective/Interval History
-
Date of Service: December 14, 2023
pt doing better--IV lopressor has to be held--HR back down
Objective Data
-
Labs:
Laboratory Results
12/14/23
07:20
WBC Pending
Hgb Pending
Hct Pending
Plt Count Pending
Sodium Pending
Potassium Pending
Chloride Pending
Carbon Dioxide Pending
BUN Pending
Creatinine Pending
Glucose Pending
Calcium Pending
Vital Signs:
max temp for 24 hours
12/14/23
03:35
Temp 98.7 F
Vital Signs
Temp Pulse Resp BP Pulse Ox
98.7 F 64 20 113/68 98
12/14/23 03:35 12/14/23 06:00 12/14/23 06:00 12/14/23 06:00 12/14/23 06:00
I&O
12/13/23 12/14/23 12/15/23
06:59 06:59 06:59
Intake Total 1737.8 / 1737.8 360 / 360
Output Total 1900 / 1900 2905 / 2905
Balance -162.2 / -162.2 -2545 / -2545
Review of Systems
-
Constitutional: Reports No Symptoms
Physical Exam
-
General: Well Developed, Well Nourished and No Apparent Distress
HEENT: Normocephalic and Atraumatic
Respiratory: Clear to Auscultation; Negative Wheezes or Rhonchi
Cardiac: Regular Rhythm and S1/S2; Negative Murmur
GI: Soft, Nontender, Nondistended and Normal Bowel Sounds
Musculoskeletal: No Clubbing, No Cyanosis and No Edema
Neuro: Awake and Alert
Psych: Calm
[2023-12-14] MEDS: DELTASONE 5 MG PO (08:46)
[2023-12-14] MEDS: FLOMAX 0.4 MG PO (08:46)
--- NOTE | 2023-12-14 10:03 | PTCARENOTE ---
Pt aaox3 now dc. No questions asked
--- NOTE | 2023-12-14 17:22 | CM ---
Spoke with patient who was preparing for discharge. The patient says he feels ready for discharge home today. IMM completed. His will provide transport home today.
No CM d/c needs identified.
Plan home today.
--- NOTE | 2023-12-15 16:10 | W.DCSUMMARY ---
Discharge Summary
Discharge Data
Date of Admission: 12/10/23
Date of Discharge: 12/14/23
-
Pending Results: No
Hospital Course
Primary care physician : Lou Hernandez
Principal Discharge diagnosis : Septic shock with lactic acidosis, acute hypoxemic respiratory insufficiency
Chronic Discharge diagnosis : Metastatic prostate cancer, abdominal aortic aneurysm status post repair with endoleak noted by CAT scan, anemia of chronic disease, hypomagnesemia/hypokalemia, hyperlipidemia
Hospital Course : Patient was a 78-year-old male with a history of metastatic prostate cancer on chemotherapy who presented from home complaining of fever, chills, weakness. He was started on systemic chemotherapy with Taxotere. He completed 5
sessions with the 6 supposedly his last. His fifth session completed on December 10, 2023. After each session he felt poorly with fever, weakness and malaise. He did not do well pushing fluids after his scheduled chemotherapy and presented to the
ED. He denied any focal complaints. He was hypotensive with a systolic blood pressure as low as 50s he was given IV fluids and started on pressors and was admitted to the intensive care unit.
Problem #1: Septic shock with lactic acidosis. Patient received chemotherapy and was immunocompromised but did not get G-CSF. His white count was 51,000 on admission. He was started on broad-spectrum antibiotics and seen in consultation by
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 Patient was pancultured and cultures were negative. He was taken off antibiotics and followed. His white count improved to normal at discharge.
Problem #2: Acute hypoxemic respiratory insufficiency. Patient's chest x-ray was clear. This was thought to be due to sepsis. He was able to be weaned rapidly off oxygen and was tolerating room air. Patient did have an episode of sinus
tachycardia for unknown reasons. IV Lopressor was started and the last few doses were held. We did discharge him with as needed Lopressor. This was thought perhaps to be due to deconditioning.
Problem #3: All other medical issues. These include Metastatic prostate cancer, abdominal aortic aneurysm status post repair with endoleak noted by CAT scan, anemia of chronic disease, hypomagnesemia/hypokalemia, hyperlipidemia. These medical
issues were stable during his hospitalization. Medications were continued as able. He will not complete his sixth course of chemotherapy as per his oncologist. He should follow-up with him in the office. Vascular surgery did consult on the
patient regarding his endoleak and were not concerned. No intervention was needed.
Patient is stable for discharge home at this time. If there are any questions regarding this dictation or his hospital stay, please not hesitate to call. Our office number is [phone].
Time for discharge 38 minutes.
Important imaging findings :
ABDOMEN/PELVIS CT SCAN IMPRESSION:
1. Status post endovascular repair of infrarenal abdominal aortic aneurysm with evidence for interval development of endoleak, likely type II as described.
2. Trace left pleural effusion.
3. Grossly stable scattered sclerotic metastases.
Discharge Plan
-
Patient Disposition: Home (Routine Discharge)
Discharge Diagnosis/Procedures: Septic shock with lactic acidosis status postchemotherapy, acute hypoxemic respiratory insufficiency, sinus tachycardia, metastatic prostate cancer, abdominal aortic aneurysm status post repair with endoleak, anemia
of chronic disease, hypomagnesemia/hypokalemia, hyperlipidemia
Condition: Good
Diet: As tolerated and Regular
Activity: As tolerated
Driving Restrictions: As prior to admission
Bathing Restrictions: None
Others Tests: You have a follow up with vascular surgeon Dr. Blake Horner in June, one week prior to appointment you need to get a CAT scan of your abdomen done for review, an order has been placed electronically. Please call [phone] to
schedule the CAT scan at [facility].
Referrals:
Blake Horner III, MD [Active] - 06/10/24 8:30 am
Lou Hernandez MD [Family Provider] - in less than 1 week
Prescriptions:
New
acetaminophen 325 mg Tablet
650 mg PO Q4HPRN PRN (Reason: Mild Pain / Temp > 101) Qty: 0 0RF
metoprolol succinate [Toprol XL] 25 mg tablet extended release 24 hr
12.5 mg PO DAILYPRN PRN (Reason: if needed for heart rate over 110) Qty: 10 0RF
Continued
atorvastatin [Lipitor] 20 mg Tablet
20 mg PO HS
aspirin 81 mg Tablet,Delayed Release (Dr/Ec)
81 mg PO HS
tamsulosin [Flomax] 0.4 mg Capsule
0.4 mg PO DAILY
Orgovyx 120 mg Tablet
120 mg PO DAILY@1000
Nubeqa 300 mg Tablet
600 mg PO BID
prednisone 5 mg tablet
5 mg PO BID
lidocaine-prilocaine 2.5-2.5 % cream
1 applic topical DAILYPRN PRN (Reason: prior to port access)
Discharge Orders:
Discharge Patient (As Directed); Ordered 12/14/23
Ordered By: Abigail Gold
Discharge Date and Time
Discharge Date/Time: 12/14/23 10:05
Print Language: ROMANIAN
== END 2023-12-14 10:05 | disposition home or self-care (01) | DRG 871 ==
LOC: IMU 23:31
PROVIDERS: Radiology Neuroradiology; ADMITTING PHYSICIAN Hospitalist; ATTENDING PHYSICIAN Internal Medicine; CONSULT PHYSICIAN Internal Medicine Critical Care Medicine; EMERGENCY PHYSICIAN Emergency Medicine; FAMILY PHYSICIAN Student in an Organized Health Care Education/Training Program; OTHER PHYSICIAN Internal Medicine Hematology & Oncology; OTHER PHYSICIAN Internal Medicine Infectious Disease; OTHER PHYSICIAN Surgery Vascular Surgery
DX: A41.9 Sepsis, unspecified organism (principal); R65.21 Severe sepsis with septic shock; E87.20 Acidosis, unspecified; C79.51 Secondary malignant neoplasm of bone; D84.821 Immunodeficiency due to drugs; R09.02 Hypoxemia; R06.89 Other abnormalities of breathing; D63.8 Anemia in other chronic diseases classified elsewhere; E87.6 Hypokalemia; C61 Malignant neoplasm of prostate; E83.42 Hypomagnesemia; I71.40 Abdominal aortic aneurysm, without rupture, unspecified; Z66 Do not resuscitate; Z11.52 Encounter for screening for COVID-19
CPT/HCPCS: 71045; 74177; 80048; 80053; 81003; 82248; 83540; 83550; 83605; 83735; 84100; 84484; 85014; 85018; 85025; 85027; 85610; 85730; 87040; 87502; 87641; 87811; 93005; 96365; 96367; 96375; 97163; 99291; Q9967

== ENCOUNTER → 2023-12-20 10:38 | Outpatient (REF) | payer OTHER, SELFPAY | LOC: PET 10:38 | PROVIDERS: ATTENDING PHYSICIAN Internal Medicine Hematology & Oncology | DX: C61 Malignant neoplasm of prostate (principal) | CPT/HCPCS: 78815 ==

== ENCOUNTER → 2023-12-31 14:34 | Outpatient (REF) | payer OTHER, SELFPAY | LOC: HWRAD 14:34 | PROVIDERS: ATTENDING PHYSICIAN Student in an Organized Health Care Education/Training Program; REFERRING PHYSICIAN Internal Medicine Hematology & Oncology | DX: R00.0 Tachycardia, unspecified (principal) | CPT/HCPCS: 71275; Q9967 ==

== ENCOUNTER → 2024-02-06 08:04 | Outpatient (REF) | payer OTHER, SELFPAY ==
[2024-02-06 09:19] LABS: % Basophils 0.8 % (0-2); % Eosinophils 2.6 % (0-6); % Immature Granulocytes 0.4 % (0-0.5); % Lymphocytes 25.9 % (20.5-51.1); % Monocytes 8.4 % (1.7-9.3); % Neutrophils 61.9 % (42.2-75.2); Absolute Eosinophils 0.1 10^3/uL (0-0.7); Absolute Lymphocytes 1.3 10^3/uL (1.2-3.4); Absolute Monocytes 0.4 10^3/uL (0.1-0.6); Hematocrit 38.1 % (39.0-52.0); Hemoglobin 12.6 g/dL (13.0-18.0); Mean Corp Hgb Conc. 33.1 g/dL (33.0-37.0); Mean Corpuscular Hgb 31.3 pg (27.0-31.0); Mean Corpuscular Volume 94.8 fL (80.0-94.0); Mean Platelet Volume 9.5 fL (7.4-10.4); Nucleated Red Blood Cells % 0 % (-); Platelet Count 178 10^3/uL (130-400); Red Blood Cell Count 4.02 10^6/uL (4.70-6.10); Red Cell Dist. Width 13.2 % (11.5-14.5); White Blood Cell Count 4.9 10^3/uL (4.8-10.8)
[2024-02-06 09:50] LABS: ALT (SGPT) 24 U/L (0-50); AST (SGOT) 37 U/L (17-59); Albumin 4.2 g/dl (3.5-5.0); Alkaline Phosphatase 91 U/L (38-126); Blood Urea Nitrogen 16 mg/dl (9-20); Calcium 9.4 mg/dl (8.4-10.2); Carbon Dioxide 30 mmol/L (22-30); Chloride 102 mmol/L (98-107); Glucose 99 mg/dl (70-99); Potassium 4.3 mmol/L (3.5-5.1); Sodium 143 mmol/L (135-145); Total Bilirubin 0.5 mg/dl (0.2-1.3); eGFR > 60.00
[2024-02-06 10:22] LABS: PSA, Total - Diagnostic 0.12 ng/ml (0.0-4.0)
== END ==
LOC: REG 08:04
PROVIDERS: ATTENDING PHYSICIAN Internal Medicine Hematology & Oncology; FAMILY PHYSICIAN Student in an Organized Health Care Education/Training Program; OTHER PHYSICIAN Specialist
DX: C61 Malignant neoplasm of prostate (principal)
CPT/HCPCS: 36415; 80053; 84153; 85025

== ENCOUNTER → 2024-03-12 07:51 | Outpatient (REF) | payer OTHER, SELFPAY ==
[2024-03-12 10:00] LABS: % Basophils 0.6 % (0-2); % Eosinophils 2.8 % (0-6); % Immature Granulocytes 0.2 % (0-0.5); % Lymphocytes 20.9 % (20.5-51.1); % Monocytes 9.4 % (1.7-9.3); % Neutrophils 66.1 % (42.2-75.2); Absolute Eosinophils 0.2 10^3/uL (0-0.7); Absolute Lymphocytes 1.1 10^3/uL (1.2-3.4); Absolute Monocytes 0.5 10^3/uL (0.1-0.6); Absolute Neutrophils 3.6 10^3/uL (1.4-6.5); Hematocrit 38.6 % (39.0-52.0); Hemoglobin 12.9 g/dL (13.0-18.0); Mean Corp Hgb Conc. 33.4 g/dL (33.0-37.0); Mean Corpuscular Hgb 30.5 pg (27.0-31.0); Mean Corpuscular Volume 91.3 fL (80.0-94.0); Mean Platelet Volume 9.6 fL (7.4-10.4); Nucleated Red Blood Cells % 0 % (-); Platelet Count 184 10^3/uL (130-400); Red Blood Cell Count 4.23 10^6/uL (4.70-6.10); Red Cell Dist. Width 12.5 % (11.5-14.5); White Blood Cell Count 5.5 10^3/uL (4.8-10.8)
[2024-03-12 11:02] LABS: ALT (SGPT) 20 U/L (0-50); AST (SGOT) 31 U/L (17-59); Albumin 4.2 g/dl (3.5-5.0); Alkaline Phosphatase 93 U/L (38-126); Blood Urea Nitrogen 17 mg/dl (9-20); Calcium 9.9 mg/dl (8.4-10.2); Carbon Dioxide 29 mmol/L (22-30); Chloride 101 mmol/L (98-107); Glucose 107 mg/dl (70-99); Potassium 4.5 mmol/L (3.5-5.1); Sodium 140 mmol/L (135-145); Total Bilirubin 0.7 mg/dl (0.2-1.3); Total Protein 7.2 g/dl (6.3-8.2); eGFR > 60.00
[2024-03-12 11:32] LABS: PSA, Total - Diagnostic 0.09 ng/ml (0.0-4.0)
== END ==
LOC: REG 07:51
PROVIDERS: ATTENDING PHYSICIAN Internal Medicine Hematology & Oncology
DX: C61 Malignant neoplasm of prostate (principal)
CPT/HCPCS: 36415; 80053; 84153; 85025

== ENCOUNTER → 2024-04-16 08:03 | Outpatient (REF) | payer OTHER, SELFPAY ==
[2024-04-16 09:55] LABS: % Basophils 0.5 % (0-2); % Eosinophils 2.9 % (0-6); % Immature Granulocytes 0.4 % (0-0.5); % Lymphocytes 17.1 % (20.5-51.1); % Monocytes 6.9 % (1.7-9.3); % Neutrophils 72.2 % (42.2-75.2); Absolute Eosinophils 0.2 10^3/uL (0-0.7); Absolute Monocytes 0.4 10^3/uL (0.1-0.6); Hematocrit 39.7 % (39.0-52.0); Hemoglobin 13.1 g/dL (13.0-18.0); Mean Corpuscular Hgb 30.3 pg (27.0-31.0); Mean Corpuscular Volume 91.7 fL (80.0-94.0); Mean Platelet Volume 9.8 fL (7.4-10.4); Nucleated Red Blood Cells % 0 % (-); Platelet Count 178 10^3/uL (130-400); Red Blood Cell Count 4.33 10^6/uL (4.70-6.10); Red Cell Dist. Width 12.7 % (11.5-14.5); White Blood Cell Count 5.5 10^3/uL (4.8-10.8)
[2024-04-16 10:50] LABS: ALT (SGPT) 20 U/L (0-50); AST (SGOT) 34 U/L (17-59); Albumin 3.9 g/dl (3.5-5.0); Alkaline Phosphatase 86 U/L (38-126); Blood Urea Nitrogen 15 mg/dl (9-20); Calcium 9.4 mg/dl (8.4-10.2); Carbon Dioxide 28 mmol/L (22-30); Chloride 104 mmol/L (98-107); Glucose 108 mg/dl (70-99); Potassium 4.4 mmol/L (3.5-5.1); Sodium 140 mmol/L (135-145); Total Bilirubin 0.8 mg/dl (0.2-1.3); Total Protein 6.8 g/dl (6.3-8.2); eGFR > 60.00
== END ==
LOC: REG 08:03
PROVIDERS: ATTENDING PHYSICIAN Internal Medicine Hematology & Oncology; FAMILY PHYSICIAN Student in an Organized Health Care Education/Training Program; OTHER PHYSICIAN Surgery Vascular Surgery
DX: C61 Malignant neoplasm of prostate (principal)
CPT/HCPCS: 36415; 80053; 84153; 85025

== ENCOUNTER → 2024-04-24 08:02 | Outpatient (REF) | payer OTHER, SELFPAY | LOC: DHVS 08:02 | PROVIDERS: ATTENDING PHYSICIAN Surgery Vascular Surgery; FAMILY PHYSICIAN Student in an Organized Health Care Education/Training Program; OTHER PHYSICIAN Internal Medicine Hematology & Oncology | DX: I71.43 Infrarenal abdominal aortic aneurysm, without rupture (principal) | CPT/HCPCS: 76770 ==

== ENCOUNTER → 2024-05-22 06:56 | Outpatient (REF) | payer OTHER, SELFPAY ==
[2024-05-22 07:24] LABS: % Basophils 0.5 % (0-2); % Eosinophils 2.8 % (0-6); % Immature Granulocytes 0.3 % (0-0.5); % Lymphocytes 21.2 % (20.5-51.1); % Monocytes 10.1 % (1.7-9.3); % Neutrophils 65.1 % (42.2-75.2); Absolute Eosinophils 0.2 10^3/uL (0-0.7); Absolute Lymphocytes 1.3 10^3/uL (1.2-3.4); Absolute Monocytes 0.6 10^3/uL (0.1-0.6); Hematocrit 38.7 % (39.0-52.0); Hemoglobin 12.5 g/dL (13.0-18.0); Mean Corp Hgb Conc. 32.3 g/dL (33.0-37.0); Mean Corpuscular Hgb 30.3 pg (27.0-31.0); Mean Corpuscular Volume 93.7 fL (80.0-94.0); Mean Platelet Volume 9.5 fL (7.4-10.4); Nucleated Red Blood Cells % 0 % (-); Platelet Count 170 10^3/uL (130-400); Red Blood Cell Count 4.13 10^6/uL (4.70-6.10); White Blood Cell Count 6.1 10^3/uL (4.8-10.8)
[2024-05-22 08:18] LABS: ALT (SGPT) 16 U/L (0-50); AST (SGOT) 25 U/L (17-59); Albumin 4.2 g/dl (3.5-5.0); Alkaline Phosphatase 87 U/L (38-126); Blood Urea Nitrogen 22 mg/dl (9-20); Calcium 9.6 mg/dl (8.4-10.2); Carbon Dioxide 27 mmol/L (22-30); Chloride 101 mmol/L (98-107); Glucose 113 mg/dl (70-99); Potassium 4.1 mmol/L (3.5-5.1); Sodium 139 mmol/L (135-145); Total Bilirubin 0.9 mg/dl (0.2-1.3); Total Protein 6.8 g/dl (6.3-8.2); eGFR > 60.00
[2024-05-22 08:52] LABS: PSA, Total - Diagnostic 0.15 ng/ml (0.0-4.0)
== END ==
LOC: REG 06:56
PROVIDERS: ATTENDING PHYSICIAN Internal Medicine Hematology & Oncology; FAMILY PHYSICIAN Student in an Organized Health Care Education/Training Program
DX: C61 Malignant neoplasm of prostate (principal)
CPT/HCPCS: 36415; 80053; 84153; 85025

== ENCOUNTER 2024-06-08 22:55 | Emergency (ER) | payer OTHER, SELFPAY ==
[2024-06-08 23:00] VITALS: BP 113/62
[2024-06-08 23:30] LABS: % Basophils 0.2 % (0-2); % Eosinophils 0.3 % (0-6); % Immature Granulocytes 0.7 % (0-0.5); % Lymphocytes 5.9 % (20.5-51.1); % Monocytes 7.8 % (1.7-9.3); % Neutrophils 85.1 % (42.2-75.2); Absolute Immature Granulocytes 0.1 10^3/uL (0-0.05); Absolute Lymphocytes 0.8 10^3/uL (1.2-3.4); Absolute Neutrophils 11.2 10^3/uL (1.4-6.5); Hematocrit 32.8 % (39.0-52.0); Hemoglobin 11.4 g/dL (13.0-18.0); Mean Corp Hgb Conc. 34.8 g/dL (33.0-37.0); Mean Corpuscular Hgb 30.9 pg (27.0-31.0); Mean Corpuscular Volume 88.9 fL (80.0-94.0); Mean Platelet Volume 8.9 fL (7.4-10.4); Nucleated Red Blood Cells % 0 % (-); Platelet Count 171 10^3/uL (130-400); Red Blood Cell Count 3.69 10^6/uL (4.70-6.10); Red Cell Dist. Width 12.6 % (11.5-14.5); White Blood Cell Count 13.1 10^3/uL (4.8-10.8)
[2024-06-09] VITALS (10 sets, daily range): BP systolic 90–141; BP diastolic 63–80; PULSE 83–98
[2024-06-09 00:04] LABS: ALT (SGPT) 19 U/L (0-50); AST (SGOT) 31 U/L (17-59); Albumin 3.5 g/dl (3.5-5.0); Alkaline Phosphatase 85 U/L (38-126); Blood Urea Nitrogen 15 mg/dl (9-20); Calcium 8.5 mg/dl (8.4-10.2); Carbon Dioxide 25 mmol/L (22-30); Chloride 103 mmol/L (98-107); Estimated Creatinine Clearance 64 ml/min; Glucose 153 mg/dl (70-99); Potassium 3.6 mmol/L (3.5-5.1); Sodium 136 mmol/L (135-145); Total Bilirubin 1.6 mg/dl (0.2-1.3); Total Protein 6.3 g/dl (6.3-8.2); eGFR > 60.00
[2024-06-09] MEDS: NSS 500 IV (01:13)
--- NOTE | 2024-06-09 02:31 | ED.GENMED ---
History of Present Illness
General
Chief Complaint: Fainting/Passed Out
Source: patient and family
Exam Limitations: none
Time Seen by Provider: 06/09/24 00:49
Nursing documentation reviewed up to this point in time: agreed with
History of Present Illness
History of Present Illness:
Patient presents ED secondary to sudden onset of dizziness, while walking to restroom, after dinner, resulting in patient briefly losing consciousness. Patient unsure if he passed out completely, as he does recall falling down. Patient was
attended to immediately by his . Patient denies headache or neck pain. Denies preceding chest pain, shortness of breath, or chest palpitations. Denies nausea or vomiting. Denies recent illness. Denies recent change in medications or diet.
Patient is wondering whether or not his symptoms may have been secondary to dehydration, as he did not drink enough water today. Of note, patient does have history of AAA, requiring operation last September. Patient followed-up with his vascular
surgeon within past 1 month had an outpatient ultrasound which was normal. Patient reports vague sensation of abdominal discomfort along with 'not feeling well' during the day, which now has resolved. Denies any abdominal pain at time of
evaluation.
Past History
Past History
ED Past Medical History: Cancer (Prostate cancer) and Hypercholesterolemia
ED Past Surgical History: Appendectomy, Cholecystectomy and Other (Repair of AAA, hernia)
Social History
Tobacco: Non-smoker
Alcohol: None
Personal:
Living: with family
Review of Systems
Review of Systems
Allergies reviewed?: Yes
All Other Systems: ROS reviewed and negative except as documented in HPI and ROS
Constitutional: Reports no symptoms
EENT: Reports no symptoms
Respiratory: Reports no symptoms; Denies trouble breathing
Cardiac: Reports syncope; Denies chest pain, diaphoresis or palpitations
ABD/GI: Reports abdominal pain; Denies nausea, vomiting or diarrhea
: Reports no symptoms
Musculoskeletal: Reports no symptoms
Skin: Reports no symptoms
Neurological: Reports dizzy and weakness
Phy Exam
Physical Exam
Physical Exam:
Physical Exam
General: no apparent distress, not acutely ill. afebrile
Head: nc/at. eomi
Neck: supple. no meningeal signs
Heart: s1/s2 regular rate and rhythm, no murmur.
Lungs: no acute respiratory distress. clear bilaterally
Abdomen: normal bowel sounds. not tender. no distention
Neuro: alert and oriented x 3. no focal neurological deficits. normal speech. normal gait
Skin: no rash
Psychiatric: well kept. interactive and cooperative
Extremities: no edema. no calf tenderness.
Course
Orders/Labs/Results
Orders:
Orders
06/08/24 23:00
Electrocardiogram (*1) Urgent
Reason for Study: Syncope
EKG- Treatment ONCE
06/08/24 23:21
CMP [Comprehensive Metabolic Panel] Urgent
Complete Blood Count/With Diff Urgent
06/09/24 01:10
Orthostatic VS- Treatment ONCE
0.9% Sodium Chloride 500 ml [Nss] 500 ml IV BOLUS
06/09/24 02:28
Heparin Pf [Heparin Lock Flush] 500 unit .ROUTE .[facility]
Abnormal Lab Results
06/08/24
23:21
WBC 13.1 H 10^3/uL
(4.8-10.8)
RBC 3.69 L 10^6/uL
(4.70-6.10)
Hgb 11.4 L g/dL
(13.0-18.0)
Hct 32.8 L %
(39.0-52.0)
Abs Immat Gran (auto) 0.1 H 10^3/uL
(0-0.05)
Absolute Neuts (auto) 11.2 H 10^3/uL
(1.4-6.5)
Absolute Lymphs (auto) 0.8 L 10^3/uL
(1.2-3.4)
Absolute Monos (auto) 1.0 H 10^3/uL
(0.1-0.6)
Immature Gran % 0.7 H %
(0-0.5)
Neutrophils % 85.1 H %
(42.2-75.2)
Lymphocytes % 5.9 L %
(20.5-51.1)
Glucose 153 H mg/dl
(70-99)
Total Bilirubin 1.6 H mg/dl
(0.2-1.3)
06/08/24 23:21
06/08/24 23:21
Vital Signs
Initial and Last Documented VS:
Initial Vital Signs
Pulse Resp BP
85 21 113/62
06/08/24 23:00 06/08/24 23:00 06/08/24 23:00
Last Documented Vital Signs
Pulse Resp BP Pulse Ox
99 18 119/75 97
06/09/24 02:45 06/09/24 02:45 06/09/24 02:45 06/09/24 02:45
MDM/Problems Addressed
MDM/Problems Addressed:
History and exam consistent with likely vasovagal syncope, preceded by dizziness sensation, without any other symptoms. Patient with an unremarkable workup in ED, including blood work, EKG. Discussed obtaining CT head in light of syncope along
with minor trauma. However, at this time, with no symptoms, patient feels comfortable going home without any further studies. As such, patient will be discharged home in stable condition, to the care of his family, with recommendation to continue
hydration at home, along with PCP follow-up as an outpatient.
*Critical Care Note
Total Time (30-74mins, 75-104mins- exclusive of procedures): Not Applicable
ED Attending Note
-
Portions of this chart may have been created with voice recognition software.� Occasional wrong word or��sound alike� substitutions may have occurred due to the inherent limitations of voice recognition software.
Discharge Plan
Departure
Patient Disposition: Home (Routine Discharge)
Date of Disposition: 06/09/24
Time of Disposition: 02:35
Patient with high blood pressure during this ER visit?: No
Condition: Good
Discharge Problem:
Syncope
Instructions: Syncope (Fainting) (DC)
Prescriptions:
No Action
atorvastatin [Lipitor] 20 mg Tablet
20 mg PO HS
aspirin 81 mg Tablet,Delayed Release (Dr/Ec)
81 mg PO HS
tamsulosin [Flomax] 0.4 mg Capsule
0.4 mg PO DAILY
Orgovyx 120 mg Tablet
120 mg PO DAILY@1000
Nubeqa 300 mg Tablet
600 mg PO BID
prednisone 5 mg tablet
5 mg PO BID
lidocaine-prilocaine 2.5-2.5 % cream
1 applic topical DAILYPRN PRN (Reason: prior to port access)
acetaminophen 325 mg Tablet
650 mg PO Q4HPRN PRN (Reason: Mild Pain / Temp > 101) Qty: 0 0RF
metoprolol succinate [Toprol XL] 25 mg tablet extended release 24 hr
12.5 mg PO DAILYPRN PRN (Reason: if needed for heart rate over 110) Qty: 10 0RF
Referrals:
Lou Hernandez MD [Family Provider] -
Activity Restrictions/Additional Instructions:
As discussed, please follow-up with your primary care physician for reevaluation. In the meantime, recommend avoiding external activities and increasing fluid intake until reevaluation.
Interventions
Interventions:
*Risk Screen - Suicide Last Done: 06/08/24 23:01
*General Assessment Last Done: 06/08/24 23:01
*Neglect/Abuse Screening Last Done: 06/08/24 23:01
*ED- Fall Risk Assessment Last Done: 06/08/24 23:01
*ED COVID-19 Vaccine History Last Done: 06/08/24 23:01
*Nursing Disposition Last Done: 06/09/24 02:45
ED- Cardiac Assessment Last Done: 06/08/24 23:23
ED- Neurological Assessment Last Done: 06/08/24 23:23
Discharge Date and Time
Discharge Date/Time: 06/09/24 02:46
Print Language: MAORI
== END 2024-06-09 02:46 | disposition home or self-care (01) ==
LOC: EMR 22:55
PROVIDERS: Student in an Organized Health Care Education/Training Program; EMERGENCY PHYSICIAN Emergency Medicine; FAMILY PHYSICIAN Student in an Organized Health Care Education/Training Program
DX: R55 Syncope and collapse (principal); R10.9 Unspecified abdominal pain; W18.30XA Fall on same level, unspecified, initial encounter; Y93.01 Activity, walking, marching and hiking; Y92.002 Bathroom of unspecified non-institutional (private) residence as the place of occurrence of the external cause; Z86.79 Personal history of other diseases of the circulatory system; Z85.46 Personal history of malignant neoplasm of prostate; Z90.49 Acquired absence of other specified parts of digestive tract
CPT/HCPCS: 99284; 96360; 80053; 85025; 93005

== ENCOUNTER → 2024-06-18 10:51 | Outpatient (REF) | payer OTHER, SELFPAY ==
[2024-06-18 08:52] LABS: % Basophils 0.5 % (0-2); % Eosinophils 2.4 % (0-6); % Immature Granulocytes 0.5 % (0-0.5); % Lymphocytes 16.9 % (20.5-51.1); % Monocytes 8.2 % (1.7-9.3); % Neutrophils 71.5 % (42.2-75.2); Absolute Eosinophils 0.2 10^3/uL (0-0.7); Absolute Lymphocytes 1.1 10^3/uL (1.2-3.4); Absolute Monocytes 0.5 10^3/uL (0.1-0.6); Absolute Neutrophils 4.5 10^3/uL (1.4-6.5); Hematocrit 35.4 % (39.0-52.0); Hemoglobin 11.9 g/dL (13.0-18.0); Mean Corp Hgb Conc. 33.6 g/dL (33.0-37.0); Mean Corpuscular Hgb 30.7 pg (27.0-31.0); Mean Corpuscular Volume 91.2 fL (80.0-94.0); Platelet Count 213 10^3/uL (130-400); Red Blood Cell Count 3.88 10^6/uL (4.70-6.10); Red Cell Dist. Width 12.4 % (11.5-14.5); White Blood Cell Count 6.3 10^3/uL (4.8-10.8)
[2024-06-18 09:35] LABS: ALT (SGPT) 15 U/L (0-50); AST (SGOT) 24 U/L (17-59); Albumin 3.6 g/dl (3.5-5.0); Alkaline Phosphatase 91 U/L (38-126); Blood Urea Nitrogen 17 mg/dl (9-20); Calcium 9.3 mg/dl (8.4-10.2); Carbon Dioxide 28 mmol/L (22-30); Chloride 106 mmol/L (98-107); Glucose 113 mg/dl (70-99); Potassium 4.1 mmol/L (3.5-5.1); Sodium 141 mmol/L (135-145); Total Bilirubin 0.8 mg/dl (0.2-1.3); Total Protein 6.4 g/dl (6.3-8.2); eGFR > 60.00
[2024-06-18 10:05] LABS: PSA, Total - Diagnostic 0.25 ng/ml (0.0-4.0)
== END ==
LOC: OIDL 10:51
PROVIDERS: ATTENDING PHYSICIAN Internal Medicine Hematology & Oncology
DX: C61 Malignant neoplasm of prostate (principal)
CPT/HCPCS: 80053; 84153; 85025

== ENCOUNTER → 2024-06-25 07:32 | Outpatient (REF) | payer OTHER, SELFPAY ==
[2024-06-25 09:05] LABS: % Basophils 0.6 % (0-2); % Eosinophils 2.3 % (0-6); % Immature Granulocytes 0.3 % (0-0.5); % Lymphocytes 19.2 % (20.5-51.1); % Monocytes 8.6 % (1.7-9.3); Absolute Eosinophils 0.2 10^3/uL (0-0.7); Absolute Lymphocytes 1.3 10^3/uL (1.2-3.4); Absolute Monocytes 0.6 10^3/uL (0.1-0.6); Absolute Neutrophils 4.5 10^3/uL (1.4-6.5); Hematocrit 36.7 % (39.0-52.0); Hemoglobin 12.5 g/dL (13.0-18.0); Mean Corp Hgb Conc. 34.1 g/dL (33.0-37.0); Mean Corpuscular Hgb 30.9 pg (27.0-31.0); Mean Corpuscular Volume 90.8 fL (80.0-94.0); Mean Platelet Volume 9.1 fL (7.4-10.4); Nucleated Red Blood Cells % 0 % (-); Platelet Count 203 10^3/uL (130-400); Red Blood Cell Count 4.04 10^6/uL (4.70-6.10); White Blood Cell Count 6.5 10^3/uL (4.8-10.8)
[2024-06-25 10:15] LABS: Albumin 4.2 g/dl (3.5-5.0); Blood Urea Nitrogen 19 mg/dl (9-20); Calcium 9.5 mg/dl (8.4-10.2); Carbon Dioxide 26 mmol/L (22-30); Chloride 105 mmol/L (98-107); Glucose 115 mg/dl (70-99); HDL Cholesterol 76 mg/dl; Iron 72 ug/dl (49-181); LDL Cholesterol, Calculated 72 mg/dl; Phosphorus 3.7 mg/dl (2.5-4.5); Potassium 4.3 mmol/L (3.5-5.1); Sodium 143 mmol/L (135-145); Total Cholesterol 159 mg/dl (50-199); Triglyceride 57 mg/dl (10-149); Very Low Density Lipoprotein 11 mg/dl (0-30); eGFR > 60.00
[2024-06-25 10:19] LABS: TSH 1.32 uIU/ml (0.47-4.68)
[2024-06-25 10:24] LABS: Percent Saturation 23 % (20-50); Total Iron Binding Capacity 302 ug/dl (261-462)
[2024-06-25 13:20] LABS: Vitamin B12 408 pg/ml (239-931)
== END ==
LOC: REG 07:32
PROVIDERS: ATTENDING PHYSICIAN Student in an Organized Health Care Education/Training Program; OTHER PHYSICIAN Specialist; OTHER PHYSICIAN Surgery Vascular Surgery; REFERRING PHYSICIAN Internal Medicine Hematology & Oncology
DX: Z00.00 Encounter for general adult medical examination without abnormal findings (principal); D64.9 Anemia, unspecified; G62.9 Polyneuropathy, unspecified; C61 Malignant neoplasm of prostate; C79.51 Secondary malignant neoplasm of bone; E78.49 Other hyperlipidemia
CPT/HCPCS: 36415; 80061; 80069; 82607; 82728; 83540; 83550; 84443; 85025

== ENCOUNTER → 2024-07-06 09:59 | Outpatient (REF) | payer OTHER, SELFPAY | LOC: RAD 09:59 | PROVIDERS: ATTENDING PHYSICIAN Student in an Organized Health Care Education/Training Program | DX: M79.661 Pain in right lower leg (principal) | CPT/HCPCS: 93971 ==

== ENCOUNTER 2024-08-28 09:30 | Outpatient (RCR) | payer OTHER, SELFPAY | END 2024-08-28 23:59 | disposition home or self-care (01) | LOC: RPT 09:30 | PROVIDERS: ATTENDING PHYSICIAN Student in an Organized Health Care Education/Training Program; FAMILY PHYSICIAN Student in an Organized Health Care Education/Training Program | DX: M79.661 Pain in right lower leg (principal); Z73.6 Limitation of activities due to disability; R26.89 Other abnormalities of gait and mobility | CPT/HCPCS: 97110; 97112; 97162 ==

== ENCOUNTER 2024-09-25 09:55 | Outpatient (RCR) | payer OTHER, SELFPAY | END 2024-09-25 23:59 | disposition home or self-care (01) | LOC: RPT 09:55 | PROVIDERS: ATTENDING PHYSICIAN Student in an Organized Health Care Education/Training Program; FAMILY PHYSICIAN Student in an Organized Health Care Education/Training Program | DX: M79.661 Pain in right lower leg (principal); R26.89 Other abnormalities of gait and mobility; Z73.6 Limitation of activities due to disability | CPT/HCPCS: 97110; 97112 ==

== ENCOUNTER 2024-10-02 10:27 | Outpatient (RCR) | payer OTHER, SELFPAY | END 2024-10-06 10:30 | disposition home or self-care (01) | LOC: RPT 10:27 | PROVIDERS: ATTENDING PHYSICIAN Student in an Organized Health Care Education/Training Program; FAMILY PHYSICIAN Student in an Organized Health Care Education/Training Program | DX: M79.661 Pain in right lower leg (principal); R26.89 Other abnormalities of gait and mobility; Z73.6 Limitation of activities due to disability | CPT/HCPCS: 97110 ==

== ENCOUNTER → 2024-12-07 07:31 | Outpatient (REF) | payer OTHER, SELFPAY ==
[2024-12-07 09:51] LABS: Blood Urea Nitrogen 18 mg/dl (9-20); Calcium 9.2 mg/dl (8.4-10.2); Carbon Dioxide 25 mmol/L (22-30); Chloride 108 mmol/L (98-107); Glucose 112 mg/dl (70-99); Potassium 4.0 mmol/L (3.5-5.1); Sodium 140 mmol/L (135-145); eGFR > 60.00
== END ==
LOC: REG 07:31
PROVIDERS: ATTENDING PHYSICIAN Surgery Vascular Surgery; FAMILY PHYSICIAN Student in an Organized Health Care Education/Training Program; OTHER PHYSICIAN Internal Medicine Hematology & Oncology; REFERRING PHYSICIAN Internal Medicine Hematology & Oncology
DX: I71.43 Infrarenal abdominal aortic aneurysm, without rupture (principal)
CPT/HCPCS: 36415; 80048

== ENCOUNTER → 2024-12-14 13:09 | Outpatient (REF) | payer OTHER, SELFPAY | LOC: RAD 13:09 | PROVIDERS: ATTENDING PHYSICIAN Surgery Vascular Surgery; FAMILY PHYSICIAN Student in an Organized Health Care Education/Training Program; OTHER PHYSICIAN Internal Medicine Hematology & Oncology; REFERRING PHYSICIAN Internal Medicine Hematology & Oncology | DX: I71.43 Infrarenal abdominal aortic aneurysm, without rupture (principal) | CPT/HCPCS: 74174; Q9967 ==